=== PATIENT | female | born 1970 | race Caucasian/White ===

== ENCOUNTER 2022-05-14 13:47 | Inpatient (IN) ==
[2022-05-14 14:36] LABS: Basophils # (auto) 0.04 K/uL (0-0.2); Basophils % (auto) 0.5 %; Eosinophils % (auto) 1.2 %; Hematocrit (blood only) 41.2 % (34.1-44.9); Hemoglobin 13.5 g/dl (12.0-16.0); Immature Granulocytes # (auto) 0.01 K/uL (0.00-0.02); Immature Granulocytes % (auto) 0.1 %; Lymphocytes # (auto) 2.64 K/uL (1.2-3.4); Lymphocytes % (auto) 30.9 %; Mean Corpuscular Hemoglobin 28.9 pg (25.0-34.0); Mean Corpuscular Hgb Conc 32.8 g/dL (32.0-36.0); Mean Corpuscular Volume 88.2 fL (80.0-100.0); Mean Platelet Volume 9.3 fL (9.4-12.3); Monocytes # (auto) 0.37 K/uL (0.24-0.82); Monocytes % (auto) 4.3 %; Neutrophils # (auto) 5.38 K/uL (1.4-6.5); Platelet Count 184 K/uL (130-400); RDW Coefficient of Variation 13.4 % (11.5-14.5); Red Blood Count 4.67 M/uL (3.93-5.22); White Blood Count 8.54 K/ul (4.8-10.8)
[2022-05-14 14:49] LABS: INR 1.1 (0.9-1.1); Partial Thromboplastin Ratio 0.9; Partial Thromboplastin Time 25.5 Seconds (21.0-31.0); Prothrombin Time 12.1 Seconds (9.0-12.0)
[2022-05-14 14:58] LABS: Alanine Aminotransferase 11 U/L (7-52); Albumin Globulin Ratio 1.2 (0.9-2); Albumin Level 4.4 gm/dl (3.4-5.0); Alkaline Phosphatase 103 U/L (34-104); Anion Gap 5 (3-11); Aspartate Aminotransferase 12 U/L (13-39); BUN Creatinine Ratio 11.9 (10-20); Bilirubin,Total 0.8 mg/dl (0.2-1.0); Blood Urea Nitrogen 8 mg/dl (6-23); Calcium 9.8 mg/dl (8.5-10.1); Carbon Dioxide 29 mmol/L (21-32); Chloride 108 mmol/L (98-107); Creatinine Clr Calc Pharmacy 86.8 ml/min; Est GFR (African American) 118.8 ml/min; Est GFR (Non-African American) 102.5 ml/min; Globulin 3.7 gm/dl (2.5-4.0); Glucose 77 mg/dl (70-99(Fasting)); Potassium 3.7 mmol/L (3.5-5.1); Sodium 142 mmol/L (136-145); Total Protein 8.1 gm/dl (6.0-8.3)
[2022-05-14 15:17] LABS: D Dimer 730 ug/L FEU (0-500)
--- NOTE | 2022-05-14 15:46 | Emergency Department Note ---
History of Present Illness General Chief complaint: Cardiac Assessment Stated complaint: CHEST PAIN, ENLARGED HEART ([facility]RAY) Time Seen by Provider: 05/14/22 15:33 Source: patient, family (Boyfriend who is at the bedside), RN notes reviewed and old records reviewed (Records from [facility]) Mode of arrival: ambulatory Limitations: no limitations History of Present Illness Maximum Pain Intensity: 10 This patient is a 51-year-old female who comes in with chest pain she was actually sent over from [facility]. She has been having pain for the last 2 weeks she is felt short of breath at times. They thought she needed a CAT scan because according to the read on x-ray she had cardiomegaly and a right lower lobe infiltrate. They did COVID and flu testing was negative. They did an EKG also which they did not feel was ischemic. It starts centrally in the epigastric area goes to the left breast and back. She has had some pleurisy with it and shortness of breath no lower extremity pain or swelling is mostly when she lays down. No recent trauma she has chronic nausea which is unchanged no fever chills she has a nonproductive cough. no sick contacts. Home Medications Medication Instructions Recorded Confirmed Type atorvastatin 20 mg tablet (Lipitor) 20 mg PO PM 05/14/22 05/14/22 History cetirizine 10 mg tablet (Zyrtec) 10 mg PO DAILY 05/14/22 05/14/22 History insulin aspart U-100 100 unit/mL 1 sliding scale dose subcut 05/14/22 05/14/22 History subcutaneous solution (Novolog USEASDIRECTD PRN DEPENDS ON BSG. U-100 Insulin aspart) insulin detemir U-100 100 unit/mL 60 - 80 unit subcut HS 05/14/22 05/14/22 History subcutaneous solution (Levemir U-100 Insulin) levothyroxine 50 mcg tablet 50 mcg PO DAILY 05/14/22 05/14/22 History (Euthyrox) lisinopril 2.5 mg tablet 2.5 mg PO DAILY 05/14/22 05/14/22 History ondansetron HCl 4 mg tablet 4 mg PO Q6H PRN NAUSEA/VOMITING 05/14/22 05/14/22 History tramadol 50 mg tablet 50 mg PO Q6H PRN Pain 05/14/22 05/14/22 History zolpidem 10 mg tablet 10 mg PO HS 05/14/22 05/14/22 History Allergies Allergy/AdvReac Type Severity Reaction Status Date / Time No Known Allergies Allergy Verified 05/14/22 17:50 Past Med/Surg History Social History Smoking Status: Never smoker Preferred Language: Bulgarian Feels Safe at Home: Yes Immunizations: Past all historytype 1 diabetes. She denies any pulmonary history of blood clots. She had a MA at age 31 she tells me Social history she is from [place] and here visiting her boyfriend Review of Systems A total of 10 systems reviewed and were otherwise negative Physical Exam Vital Signs Vital Signs - 24 hr 05/14/22 13:55 05/14/22 15:36 05/14/22 15:36 Temperature 36.6 C Temperature Source Temporal Artery Scan Pulse Rate 96 H Pulse Rate [Apical] 97 H Pulse Rhythm Regular Pulse Strength Normal Respiratory Rate 20 18 Respiratory Effort / Characteristics Non-Labored Spontaneous Non-Labored Spontaneous Non-Labored Spontaneous Respiratory Depth Normal Normal Respiratory Pattern Regular Blood Pressure 144/84 H Blood Pressure [Right Arm] 119/78 Blood Pressure Mean 104 Blood Pressure Mean [Right Arm] 91 Blood Pressure Position Sitting Blood Pressure Position [Right Arm] Sitting Pulse Oximetry 98 98 98 Oxygen Delivery Method Room Air Room Air Room Air Sepsis Recent Fever Within 48 Hours No Sepsis New/Unexplained Change in Mental Status No Sepsis Action Taken by Nursing No Action Required 05/14/22 16:23 05/14/22 17:00 05/14/22 17:50 Temperature Temperature Source Pulse Rate Pulse Rate [Apical] 93 H 85 93 H Pulse Rhythm Pulse Strength Respiratory Rate 18 16 18 Respiratory Effort / Characteristics Non-Labored Spontaneous Non-Labored Spontaneous Non-Labored Spontaneous Respiratory Depth Normal Normal Normal Respiratory Pattern Blood Pressure Blood Pressure [Right Arm] 127/84 116/77 125/90 Blood Pressure Mean Blood Pressure Mean [Right Arm] 98 90 101 Blood Pressure Position Blood Pressure Position [Right Arm] Sitting Lying Lying Pulse Oximetry 99 97 93 Oxygen Delivery Method Room Air Room Air Room Air Sepsis Recent Fever Within 48 Hours Sepsis New/Unexplained Change in Mental Status Sepsis Action Taken by Nursing General: Well developed well nourished middle-aged female who is nonacute the ill-appearing and in no acute distress, breathing comfortably on room air. Normal speech HEENT: Normal cephalic atraumatic. Pupils are equal round and reactive to light. Extraocular movements are intact. Oropharynx is pink with moist mucous membranes. No swelling of the mouth lips or tongue. Neck: Supple with a midline trachea. No meningeal signs or stiffness, no JVD or bruits. No Stridor. Chest: Clear to auscultation bilaterally. No wheezes or rhonchi. No increased work of breathing. Tender palpation epigastric area and towards the left chest. Heart: Regular rate and rhythm without murmurs or gallops. Abdomen: Soft nontender, nondistended without rebound guarding or rigidity. Extremities: No cyanosis clubbing or edema. No calf tenderness or assymetry Spine/Back. Non tender to palpation. No CVA tenderness Skin: Good turgor without rashes. Neurologic exam: Cranial nerves two through 12 are intact. Motor and sensation are intact and symmetrical throughout. Critical Care Time Critical Care Time: Yes Total Critical Care Time: 35 Due to the patient's chest pain, concern for Significant pericardial effusion with developing cardiac tamponade, need for frequent reassessment and multiple consultations, I have personally spent gr eater than 35 minutes of critical care time in the direct management of this patient. This includes bedside care, interpretation of diagnostic studies, and testing, discussion with consultants, patient, and family members, and other required patient management activities. This 35 minutes is in excess of all separately billable procedures. Medical Decision Making Differential Diagnosis Acute coronary syndrome, arrhythmia, PE, pneumothorax, intra-abdominal process, GERD, electrolyte or metabolic, pericardial effusion/tamponade Medical Records Attestation: I reviewed the patient's medical records. Home Medications Current Medication List: was personally reviewed by me Laboratory Data Attestation: I reviewed the patient's lab results. Result diagrams: 05/14/22 14:25 05/14/22 14:25 Lab Results 05/14/22 05/14/22 05/14/22 Range/Units 14:25 14:25 14:25 WBC 8.54 (4.8-10.8) K/ul RBC 4.67 (3.93-5.22) M/uL Hgb 13.5 (12.0-16.0) g/dl Hct 41.2 (34.1-44.9) % MCV 88.2 (80.0-100.0) fL MCH 28.9 (25.0-34.0) pg MCHC 32.8 (32.0-36.0) g/dL RDW Std Deviation 43.0 (36.4-46.3) fL RDW Coeff of Avril 13.4 (11.5-14.5) % Plt Count 184 (130-400) K/uL MPV 9.3 L (9.4-12.3) fL Immature Gran % (Auto) 0.1 % Neut % (Auto) 63.0 % Lymph % (Auto) 30.9 % [place] % (Auto) 4.3 % Eos % (Auto) 1.2 % Baso % (Auto) 0.5 % Neut # (Auto) 5.38 (1.4-6.5) K/uL Lymph # (Auto) 2.64 (1.2-3.4) K/uL [place] # (Auto) 0.37 (0.24-0.82) K/uL Eos # (Auto) 0.10 (0-0.50) K/uL Baso # (Auto) 0.04 (0-0.2) K/uL Immature Gran # (Auto) 0.01 (0.00-0.02) K/uL ESR (0-30) mm/hr PT 12.1 H (9.0-12.0) Seconds INR 1.1 (0.9-1.1) APTT 25.5 (21.0-31.0) Seconds PTT Ratio 0.9 D-Dimer 730 H* (0-500) ug/L FEU Sodium 142 (136-145) mmol/L Potassium 3.7 (3.5-5.1) mmol/L Chloride 108 H (98-107) mmol/L Carbon Dioxide 29 (21-32) mmol/L Anion Gap 5 (3-11) BUN 8 (6-23) mg/dl Creatinine 0.67 (0.6-1.2) mg/dl Est Cr Clr Drug Dosing 86.8 ml/min Est GFR ( Amer) 118.8 ml/min Est GFR (Non-Af Amer) 102.5 ml/min BUN/Creatinine Ratio 11.9 (10-20) Glucose 77 (70-99(Fasting)) mg/dl Calcium 9.8 (8.5-10.1) mg/dl Magnesium 2.0 (1.7-2.4) mg/dl Total Bilirubin 0.8 (0.2-1.0) mg/dl AST 12 L (13-39) U/L ALT 11 (7-52) U/L Alkaline Phosphatase 103 (34-104) U/L Troponin I High Sens < 2.3 (0-14) pg/ml C-Reactive Protein (0-0.5) mg/dl B-Natriuretic Peptide (0-100) pg/ml Total Protein 8.1 (6.0-8.3) gm/dl Albumin 4.4 (3.4-5.0) gm/dl Globulin 3.7 (2.5-4.0) gm/dl Albumin/Globulin Ratio 1.2 (0.9-2) SARS-CoV-2, RNA, NAAT (NEGATIVE) 05/14/22 05/14/22 05/14/22 Range/Units 14:25 14:25 14:25 WBC (4.8-10.8) K/ul RBC (3.93-5.22) M/uL Hgb (12.0-16.0) g/dl Hct (34.1-44.9) % MCV (80.0-100.0) fL MCH (25.0-34.0) pg MCHC (32.0-36.0) g/dL RDW Std Deviation (36.4-46.3) fL RDW Coeff of Avril (11.5-14.5) % Plt Count (130-400) K/uL MPV (9.4-12.3) fL Immature Gran % (Auto) % Neut % (Auto) % Lymph % (Auto) % [place] % (Auto) % Eos % (Auto) % Baso % (Auto) % Neut # (Auto) (1.4-6.5) K/uL Lymph # (Auto) (1.2-3.4) K/uL [place] # (Auto) (0.24-0.82) K/uL Eos # (Auto) (0-0.50) K/uL Baso # (Auto) (0-0.2) K/uL Immature Gran # (Auto) (0.00-0.02) K/uL ESR 55 H (0-30) mm/hr PT (9.0-12.0) Seconds INR (0.9-1.1) APTT (21.0-31.0) Seconds PTT Ratio D-Dimer (0-500) ug/L FEU Sodium (136-145) mmol/L Potassium (3.5-5.1) mmol/L Chloride (98-107) mmol/L Carbon Dioxide (21-32) mmol/L Anion Gap (3-11) BUN (6-23) mg/dl Creatinine (0.6-1.2) mg/dl Est Cr Clr Drug Dosing ml/min Est GFR ( Amer) ml/min Est GFR (Non-Af Amer) ml/min BUN/Creatinine Ratio (10-20) Glucose (70-99(Fasting)) mg/dl Calcium (8.5-10.1) mg/dl Magnesium (1.7-2.4) mg/dl Total Bilirubin (0.2-1.0) mg/dl AST (13-39) U/L ALT (7-52) U/L Alkaline Phosphatase (34-104) U/L Troponin I High Sens (0-14) pg/ml C-Reactive Protein 1.00 H (0-0.5) mg/dl B-Natriuretic Peptide 16 (0-100) pg/ml Total Protein (6.0-8.3) gm/dl Albumin (3.4-5.0) gm/dl Globulin (2.5-4.0) gm/dl Albumin/Globulin Ratio (0.9-2) SARS-CoV-2, RNA, NAAT (NEGATIVE) 05/14/22 Range/Units 16:24 WBC (4.8-10.8) K/ul RBC (3.93-5.22) M/uL Hgb (12.0-16.0) g/dl Hct (34.1-44.9) % MCV (80.0-100.0) fL MCH (25.0-34.0) pg MCHC (32.0-36.0) g/dL RDW Std Deviation (36.4-46.3) fL RDW Coeff of Avril (11.5-14.5) % Plt Count (130-400) K/uL MPV (9.4-12.3) fL Immature Gran % (Auto) % Neut % (Auto) % Lymph % (Auto) % [place] % (Auto) % Eos % (Auto) % Baso % (Auto) % Neut # (Auto) (1.4-6.5) K/uL Lymph # (Auto) (1.2-3.4) K/uL [place] # (Auto) (0.24-0.82) K/uL Eos # (Auto) (0-0.50) K/uL Baso # (Auto) (0-0.2) K/uL Immature Gran # (Auto) (0.00-0.02) K/uL ESR (0-30) mm/hr PT (9.0-12.0) Seconds INR (0.9-1.1) APTT (21.0-31.0) Seconds PTT Ratio D-Dimer (0-500) ug/L FEU Sodium (136-145) mmol/L Potassium (3.5-5.1) mmol/L Chloride (98-107) mmol/L Carbon Dioxide (21-32) mmol/L Anion Gap (3-11) BUN (6-23) mg/dl Creatinine (0.6-1.2) mg/dl Est Cr Clr Drug Dosing ml/min Est GFR ( Amer) ml/min Est GFR (Non-Af Amer) ml/min BUN/Creatinine Ratio (10-20) Glucose (70-99(Fasting)) mg/dl Calcium (8.5-10.1) mg/dl Magnesium (1.7-2.4) mg/dl Total Bilirubin (0.2-1.0) mg/dl AST (13-39) U/L ALT (7-52) U/L Alkaline Phosphatase (34-104) U/L Troponin I High Sens (0-14) pg/ml C-Reactive Protein (0-0.5) mg/dl B-Natriuretic Peptide (0-100) pg/ml Total Protein (6.0-8.3) gm/dl Albumin (3.4-5.0) gm/dl Globulin (2.5-4.0) gm/dl Albumin/Globulin Ratio (0.9-2) SARS-CoV-2, RNA, NAAT NEGATIVE (NEGATIVE) Imaging Data Attestation: I personally reviewed and interpreted this imaging study as follows: My Impression: Chest x-ray-there is significant cardiomegaly and the shape of the heart is globular concerning for pericardial effusion. No focal infiltrates Radiologist's Impression: Chest X-Ray 05/14/22 14:03 XR chest 1V portable CLINICAL HISTORY: SOB TECHNIQUE: Single frontal radiograph of the chest was obtained. Comparison: None available at the time of this dictation. FINDINGS: No lines and tubes are seen. Cardiomegaly is noted. Linear density in the left retrocardiac region may represent atelectasis. No evidence of pleural effusion or pneumothorax. IMPRESSION: Cardiomegaly. Likely atelectasis in the left lung. ACT 112: Negative or not required by law. Electronically signed by: Joe Whitfield M.D. 05/14/2022 3:56 PM Chest CTA 05/14/22 16:02 CT angio chest PE protocol CLINICAL HISTORY: Left-sided chest pain and cough. Shortness of breath. COMPARISON STUDY: Portable chest from 05/14/2022 CT DOSE: 221.28 mGy.cm TECHNIQUE: CT Angio of the chest was performed.followed by image post processing with coronal, and sagittal MIP reformats. Contrast Volume: Optiray 320, 120 ml FINDINGS: Vasculature: There is homogeneous perfusion of the pulmonary vasculature bilaterally. No intraluminal filling defects or evidence for pulmonary embolus is seen. Airway: The airway is clear. No endobronchial lesion is identified. Lungs and pleural: There is elevation of the left hemidiaphragm with left basilar atelectasis. The lungs are otherwise clear of acute alveolar opacities, air bronchograms or pulmonary nodules. Mediastinum: There is no evidence for pathologic adenopathy. The overall heart size is markedly enlarged due to a markedly large pericardial effusion. The underlying cardiac parenchyma is of normal size. The thoracic aorta is within normal limits. Upper abdomen: The adrenal glands are normal bilaterally. Osseous structures: There is no acute osseous pathology. Impression: 1. No CTA evidence for pulmonary embolus. 2. Markedly large pericardial effusion producing marked cardiomegaly. 2. Small left pleural effusion and left basilar atelectasis. ACT 112: Negative or not required by law. Electronically signed by: Garrick Vuong M.D. 05/14/2022 5:26 PM ECG Data Attestation: I personally reviewed and interpreted this ECG as follows: Indication: + chest pain Rate (beats per minute): 88 Rhythm: + normal sinus ECG Intervals/blocks: + Normal QRS, + Short KS and + Normal QT ECG Kamiah: + Normal ECG ST segments: + Normal ST segments ECG Findings: no PACs or no PVCs Comparison ECG Date: from (Earlier today at [facility]) Change: no significant change MDM Narrative This patient comes in as described above. She was placed in room C1 on a due diligence coordinator she was sent over from [facility]. Labs were started in triage her EKG does not suggest acute coronary syndrome or arrhythmia. I did not do a chest x-ray as she just had 1 and she is going to get a CT. She has no fever or white count to suggest infection she has no severe electrolyte or metabolic abnormalities. Her D-dimer was mildly elevated in light of this I did do a CTA as well. In the meantime her chest x-ray came back as a very globular large heart I was concerned about pericardial effusion vertically based on her symptoms and looking at her EKG she seems low voltage. Her pressures been good and but her symptoms are also positional. I did consult Dr. Clark who ordered an echo and the automotive specialty technician promptly came to the ED. The Dr. Clark also came and she does have a large pericardial effusion both seen on echo and CT. Dr. Cabrera from the [facility] also came down and called a heart alert and he is going to take her to the Environmental [facility] And Safety Manager for pericardial drainage. The patient will likely need to go to the ICU afterwards and I discussed the case with Dr. Toth from the ICU to make him aware as well. I further discussed the case with RJ Pedro the hospitalist service and she is going to admit the patient. She was cardiac monitoring: Orders placed in EMR for continuous cardiac monitoring. Collins interpretation patient was noted to be in normal sinus rhythm with a rate of 85. Impression & Plan Cardiac tamponade, Acute pericardial effusion, Chest pain, Shortness of breath, Lab test negative for COVID-19 virus, Type 1 diabetes mellitus Discharge Plan Visit Data Chief Complaint: Cardiac Assessment Stated Complaint: CHEST PAIN, ENLARGED HEART ([facility]) ED Provider: Fausto More Discharge Problem: Cardiac tamponade, Acute pericardial effusion, Chest pain, Shortness of breath, Lab test negative for COVID-19 virus, Type 1 diabetes mellitus Forms Stand Alone Forms: My [facility] Prescriptions Prescriptions: No Action atorvastatin [Lipitor] 20 mg Tablet 20 mg PO PM cetirizine [Zyrtec] 10 mg Tablet 10 mg PO DAILY ondansetron HCl [Zofran] 4 mg Tablet 4 mg PO Q6H PRN (Reason: NAUSEA/VOMITING) tramadol 50 mg tablet 50 mg PO Q6H PRN (Reason: Pain) insulin aspart U-100 [Novolog U-100 Insulin aspart] 100 unit/mL Solution 1 sliding scale dose SUBCUT USEASDIRECTD PRN (Reason: DEPENDS ON BSG.) Rx Instructions: PER SPOUSE "HAS BEEN TAKING 3 UNITS DAILY LATELY". levothyroxine [Euthyrox] 50 mcg tablet 50 mcg PO DAILY zolpidem 10 mg tablet 10 mg PO HS lisinopril 2.5 mg tablet 2.5 mg PO DAILY Levemir U-100 Insulin 100 unit/mL Solution 60 - 80 unit SUBCUT HS Rx Instructions: PER SPOUSE "NEVER ABOVE 80 UNITS". Referrals Referrals: PCP,NO [Primary Care Provider] -
--- NOTE | 2022-05-14 15:57 | XRay Report ---
XR chest 1V portable CLINICAL HISTORY: SOB TECHNIQUE: Single frontal radiograph of the chest was obtained. Comparison: None available at the time of this dictation. FINDINGS: No lines and tubes are seen. Cardiomegaly is noted. Linear density in the left retrocardiac region ma y represent atelectasis. No evidence of pleural effusion or pneumothorax. IMPRESSION: Cardiomegaly. Likely atelectasis in the left lung. ACT 112: Negative or not required by law. Electronically signed by: Joe Whitfield M.D. 05/14/2022 3:56 PM
[2022-05-14 16:28] LABS: Troponin I High Sensitivity < 2.3 pg/ml (0-14)
--- NOTE | 2022-05-14 17:28 | CT Scan Report ---
CT angio chest PE protocol CLINICAL HISTORY: Left-sided chest pain and cough. Shortness of breath. COMPARISON STUDY: Portable chest from 05/14/2022 CT DOSE: 221.28 mGy.cm TECHNIQUE: CT Angio of the chest was performed.followed by image post processing with coronal, and s agittal MIP reformats. Contrast Volume: Optiray 320, 120 ml FINDINGS: Vasculature: There is homogeneous perfusion of the pulmonary vasculature bilaterally. No intraluminal filling defects or evidence for pulmonary embolus is seen. Airway: The airway is clear. No endobronchial lesion is identified. Lungs and pleural: There is elevation of the left hemidiaphragm with left basilar atelectasis. The cathy ngs are otherwise clear of acute alveolar opacities, air bronchograms or pulmonary nodules. Mediastinum: There is no evidence for pathologic adenopathy. The overall heart size is markedly enlar ged due to a markedly large pericardial effusion. The underlying cardiac parenchyma is of normal size . The thoracic aorta is within normal limits. Upper abdomen: The adrenal glands are normal bilaterally. Osseous structures: There is no acute osseous pathology. Impression: 1. No CTA evidence for pulmonary embolus. 2. Markedly large pericardial effusion producing marked cardiomegaly. 2. Small left pleural effusion and left basilar atelectasis. ACT 112: Negative or not required by law. Electronically signed by: Garrick Vuong M.D. 05/14/2022 5:26 PM
--- NOTE | 2022-05-14 18:04 | Cardiology Consultation ---
Date of Consultation May 14, 2022 Assessment & Plan (1) Acute pericardial effusion: (2) Cardiac tamponade: Patient with findings of symptomatic large circumferential pericardial effusion, tamponade physiology noted on echocardiogram as the right ventricle small and underfilled. Etiology to be determined. Case discussed with Dr. Cabrera of interventional cardiology, with whom I saw the patient at the bedside. Recommend proceeding with percutaneous pericardiocentesis. Will be sent for the standard studies. Start colchicine this evening. [facility]. Case discussed with Dr. Cabrera, Dr More, and Tori Willis PA-C. History of Present Illness History of Present Illness Bell Oliva is a 51-year-old female seen in cardiology consultation per the request of Dr. More for the evaluation of chest discomfort, shortness of breath, findings of large circumferential pericardial effusion. The patient typically resides in [place]. She has been in [place] since April 06, as her is here working locally. For the last 2 weeks she describes a progressive pain in the chest as well as worsening shortness of breath. She notes her chest discomfort is worse if she tries to take a deep breath and if she tries to lie supine. She prefers to sit straight up. She presented to a local urgent care today and was referred to the emergency department. Initial testing included an EKG that revealed sinus rhythm with low voltage, and a chest x-ray revealing a large globular cardiac silhouette. CT angiogram revealed a markedly large pericardial effusion and small left pleural effusion. Bedside echocardiogram has revealed a very large circumferential pericardial effusion with tamponade physiology findings of right ventricular diastolic collapse. Patient is hemodynamically stable with systolic blood pressure in the range of 119 to 125 mmHg, pulse oximetry has been in the range of 93 to 99% on room air. She is afebrile, and notes no current or recent viral symptoms. She notes that she feels she is up-to-date with her routine cancer screenings. Her most recent mammogram had been in July,. She denies ever having had a colonoscopy however. Past Medical History: Type 2 diabetes mellitus Dyslipidemia Past TIAs DKA event 7 years ago Family History: Father with history of CAD, stents Mother with history of colon and breast carcinoma Social History: She lives with her , resides in [place] most of the time. Allergies Allergy/AdvReac Type Severity Reaction Status Date / Time No Known Allergies Allergy Verified 05/14/22 17:50 Home Medications Medication Instructions Recorded Confirmed Type atorvastatin 20 mg tablet (Lipitor) 20 mg PO PM 05/14/22 05/14/22 History cetirizine 10 mg tablet (Zyrtec) 10 mg PO DAILY 05/14/22 05/14/22 History insulin aspart U-100 100 unit/mL 1 sliding scale dose subcut 05/14/22 05/14/22 History subcutaneous solution (Novolog USEASDIRECTD PRN DEPENDS ON BSG. U-100 Insulin aspart) insulin detemir U-100 100 unit/mL 60 - 80 unit subcut HS 05/14/22 05/14/22 Hist ory subcutaneous solution (Levemir U-100 Insulin) levothyroxine 50 mcg tablet 50 mcg PO DAILY 05/14/22 05/14/22 History (Euthyrox) lisinopril 2.5 mg tablet 2.5 mg PO DAILY 05/14/22 05/14/22 History ondansetron HCl 4 mg tablet 4 mg PO Q6H PRN NAUSEA/VOMITING 05/14/22 05/14/22 History tramadol 50 mg tablet 50 mg PO Q6H PRN Pain 05/14/22 05/14/22 History zolpidem 10 mg tablet 10 mg PO HS 05/14/22 05/14/22 History Patient History Social History Smoking Status: Never smoker Preferred Language: Czech Feels Safe at Home: Yes Review of Systems Review of Systems: All systems reviewed & are unremarkable except as noted in HPI & below Physical Exam Physical Exam: Temp Pulse Resp BP Pulse Ox O2 Del Method 36.6 C 93 H 18 125/90 93 05/14/22 13:55 05/14/22 17:50 05/14/22 17:50 05/14/22 17:50 05/14/22 17:50 05/14/22 17:50 Constitutional: + ill appearing Eyes: PERRL, conjunctivae normal, anicteric sclerae Respiratory: + labored breathing Auscultation: + diminished lung sounds (Decreased breath sounds in the bases) Cardiovascular: Rate/Rhythm: regular rate and regular rhythm (Decreased volume of heart sounds) Extremities: no edema Gastrointestinal (Abdomen): normal bowel sounds, soft, nontender, no hepatosplenomegaly Skin: no rashes, warm and dry Neurologic: PERRL, EOMI, accommodation nl, no face palsy, no dysarthria Results & Data ([facility]) Vital Signs (Past 12 Hours) Vital Signs Temp Pulse Pulse Resp BP BP Pulse Ox 05/14/22 17:50 93 H 18 125/90 93 05/14/22 17:00 85 16 116/77 97 05/14/22 16:23 93 H 18 127/84 99 05/14/22 15:36 98 05/14/22 15:36 97 H 18 119/78 98 05/14/22 13:55 36.6 C 96 H 20 144/84 H 98 O2 Del Method 05/14/22 17:50 Room Air 05/14/22 17:00 Room Air 05/14/22 16:23 Room Air 05/14/22 15:36 Room Air 05/14/22 15:36 Room Air 05/14/22 13:55 Room Air Laboratory Results Cardiac Enzymes 05/14/22 05/14/22 Range/Units 14:25 14:25 AST 12 L (13-39) U/L Troponin I High Sens < 2.3 (0-14) pg/ml B-Natriuretic Peptide 16 (0-100) pg/ml erythrocyte sedimentation rate 55 mm/h C-reactive protein 1 mg/dL Coagulation 05/14/22 05/14/22 Range/Units 14:25 14:25 PT 12.1 H (9.0-12.0) Seconds APTT 25.5 (21.0-31.0) Seconds B-Natriuretic Peptide 16 (0-100) pg/ml CBC 05/14/22 Range/Units 14:25 WBC 8.54 (4.8-10.8) K/ul RBC 4.67 (3.93-5.22) M/uL Hgb 13.5 (12.0-16.0) g/dl Hct 41.2 (34.1-44.9) % Plt Count 184 (130-400) K/uL Neut # (Auto) 5.38 (1.4-6.5) K/uL Lymph # (Auto) 2.64 (1.2-3.4) K/uL [place] # (Auto) 0.37 (0.24-0.82) K/uL Eos # (Auto) 0.10 (0-0.50) K/uL Baso # (Auto) 0.04 (0-0.2) K/uL Comprehensive Metabolic Panel 05/14/22 Range/Units 14:25 Sodium 142 (136-145) mmol/L Potassium 3.7 (3.5-5.1) mmol/L Chloride 108 H (98-107) mmol/L Carbon Dioxide 29 (21-32) mmol/L BUN 8 (6-23) mg/dl Creatinine 0.67 (0.6-1.2) mg/dl Glucose 77 (70-99(Fasting)) mg/dl Calcium 9.8 (8.5-10.1) mg/dl AST 12 L (13-39) U/L ALT 11 (7-52) U/L Alkaline Phosphatase 103 (34-104) U/L Total Protein 8.1 (6.0-8.3) gm/dl Albumin 4.4 (3.4-5.0) gm/dl Diagnostic Findings EKG: Sinus rhythm at 80 bpm low voltage, nonspecific diffuse T wave flattening
[2022-05-14] MEDS ORDERED: MIDAZOLAM HCL 1 MG/ML 2ML VIAL ONE (18:06)
[2022-05-14] MEDS ORDERED: fentaNYL citrate 100 MCG/2 ML VIAL ONE (18:06)
--- NOTE | 2022-05-14 18:18 | Pre Anesthesia Assessment ---
Date of Service May 14, 2022 Pre Sedation Assessment Vital Signs Temp Pulse Pulse Resp BP BP Pulse Ox 05/14/22 17:50 93 H 18 125/90 93 05/14/22 17:00 85 16 116/77 97 05/14/22 16:23 93 H 18 127/84 99 05/14/22 15:36 98 05/14/22 15:36 97 H 18 119/78 98 05/14/22 13:55 97.9 F 96 H 20 144/84 H 98 O2 Del Method 05/14/22 17:50 Room Air 05/14/22 17:00 Room Air 05/14/22 16:23 Room Air 05/14/22 15:36 Room Air 05/14/22 15:36 Room Air 05/14/22 13:55 Room Air Cardiovascular RRR, no murmur, no edema Respiratory normal respiratory effort, lungs clear to auscultation Pre-Sedation Airway Assessment Smoking Status: Never smoker Hx Sleep Apnea: No Hx Difficult Intubation: No Short, Thick Neck: No Thyromental Distance: > or= 3.5 Finger Breadths Oral Cavity: + WNL Mallampati Class: III ASA: ASA3 Procedure Planning Contraindications for Sedation: none Current Medications Reviewed: Yes Notes The planned sedation has been discussed with the patient. Informed Consent was obtained. I have identified the patient, determined the appropriateness of sedation and have assessed the patient immediately prior to the procedure. All medicine(s) and interventions are by my order.
--- NOTE | 2022-05-14 18:50 | History & Physical Report ---
Date of Service May 14, 2022 Assessment & Plan (1) Acute pericardial effusion: (2) Cardiac tamponade: (3) T2DM (type 2 diabetes mellitus): (4) HLD (hyperlipidemia): Plan This is a 51-year-old female who has a significant past medical history of T2DM, history of TIAs, history of DKA, gastroparesis who presents to ED after complaining of chest pain off and on for 2 weeks. Acute pericardial effusion Cardiac tamponade Status post emergent pericardiocentesis by Dr. Cabrera, POD #0 Removed 1 L of straw-colored fluid Cytology, cultures and cell counts ordered by Dr. Patten CRP 1, ESR 55 Repeat echo Cardiology on board Colchicine started this evening 0.6 mg twice daily Will hold any NSAIDs/ibuprofen this evening until follow-up creatinine in the morning per cardioloy Patient to be admitted to ICU Further care as per milling supervisor consultation T2DM Per patient last A1c was 6.7 Lantus/NovoLog per protocol Will consult glycemic pharmacy continue lisinopril for renal protection Hyperlipidemia Continue statin Hypothyroidism Continue levothyroxine DVT prophylaxis SCDs Dispo: Admitted to ICU Full code PCP: Patient resides in [place], has been in area since April 06 while significant other is working Patient was seen and examined in collaboration with, Dr. Sung, please see addendum History of Present Illness Chief Complaint: Chest pain x 2 weeks. Primary Care Provider: NO PCP This is a 51-year-old female who has a significant past medical history of T2DM, history of TIAs, history of DKA, gastroparesis who presents to ED after complaining of chest pain off and on for 2 weeks. Of significance patient resides in [place]. 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 Over the last 2 weeks she describes a progressive substernal chest pain that has been worsening over the last 2 weeks. Her pain is worsened with lying flat and feels better if she sits up or leans forward. She does complain of shortness with exertion as well as difficulty taking a deep breath. She denies any recent fever, chills, sweats, lightheadedness, dizziness, syncope, cough, hemoptysis, nausea, vomiting, abdominal pain, change in bowel or urinary habits. She does have off-and-on nausea due to gastroparesis for which she takes Zofran. She also has history of insulin-dependent T2DM. She takes approximately 60 to 80 units of Levemir once daily. She states her last A1c was 6.7. Patient significant other was at bedside. She initially presented to urgent care and was referred over to ED due to concern for possible pericardial effusion. In ED work-up revealed chest x- ray with a large globular cardiac silhouette. CT angiogram revealed a markedly large pericardial effusion and small left pleural effusion. Bedside echo reveal ed a large circumferential pericardial effusion with tamponade physiology with findings of right ventricular diastolic collapse. A heart alert was called and patient was evaluated by licensed insurance sales agent as well as [facility] small business director to be taken to [facility] for pericardiocentesis. Allergies Allergy/AdvReac Type Severity Reaction Status Date / Time No Known Allergies Allergy Verified 05/14/22 17:50 Home Medications Medication Instructions Recorded Confirmed Type atorvastatin 20 mg tablet (Lipitor) 20 mg PO PM 05/14/22 05/14/22 History cetirizine 10 mg tablet (Zyrtec) 10 mg PO DAILY 05/14/22 05/14/22 History insulin aspart U-100 100 unit/mL 1 sliding scale dose subcut 05/14/22 05/14/22 History subcutaneous solution (Novolog USEASDIRECTD PRN DEPENDS ON BSG. U-100 Insulin aspart) insulin detemir U-100 100 unit/mL 60 - 80 unit subcut HS 05/14/22 05/14/22 History subcutaneous solution (Levemir U-100 Insulin) levothyroxine 50 mcg tablet 50 mcg PO DAILY 05/14/22 05/14/22 History (Euthyrox) lisinopril 2.5 mg tablet 2.5 mg PO DAILY 05/14/22 05/14/22 History ondansetron HCl 4 mg tablet 4 mg PO Q6H PRN NAUSEA/VOMITING 05/14/22 05/14/22 History tramadol 50 mg tablet 50 mg PO Q6H PRN Pain 05/14/22 05/14/22 History zolpidem 10 mg tablet 10 mg PO HS 05/14/22 05/14/22 History Past Med/Surg History Medical History (Updated 05/15/22 @ 08:19 by Shawn Toth MD) DKA (diabetic ketoacidosis) Gastroparesis HLD (hyperlipidemia) T2DM (type 2 diabetes mellitus) TIA (transient ischemic attack) Surgical History (Updated 05/14/22 @ 19:29 by Tori Willis PA-C) Hx laparoscopic cholecystectomy Hx of abdominoplasty "tummy tuck" Hx of hysterectomy Family History (Updated 05/14/22 @ 19:29 by Tori Willis PA-C) Father Coronary heart disease Mother Colorectal cancer Breast cancer Social History (Updated 05/14/22 @ 19:29 by Tori Willis PA-C) Smoking Status: Never smoker Hx Alcohol Use: Yes Alcohol type: beer and wine Alcohol Intake Frequency: 2-4 x/Month Hx Substance Use: No Preferred Language: Beninese Communication Ability: Effective Hospice Case Manager Required: No Beliefs That Will Affect Care: None marital status: Single Current Living Situation: Significant Other Current Living Situation Comment: lives with spouse and resides in [place] most of the time Feels Safe at Home: Yes Review of Systems Review of Systems: All systems reviewed & are unremarkable except as noted in HPI & below Physical Exam Physical Exam: Constitutional: WD/WN, vitals as above, anxious and ill appearing, sitting up in bed, answers questions approp Head: Normocephalic, Atraumatic Eyes: PERRL, conjunctivae normal, anicteric sclerae ENMT: external ear and nose normal, oropharynx normal Neck: trachea midline, no thyromegaly normal visual inspection Respiratory: increased respiratory effort, lungs clear to auscultation with decreased BS at bases, no wheeze, rales, rhonchi. Normal insp/exp effort, no accessory muscle use Cardiovascular: RRR, distant heart sounds, no murmur, no edema Vessels: no JVD or carotid bruit Chest: normal inspection of chest Abdomen: normal bowel sounds, soft, nontender, no hepatosplenomegaly Musculoskeletal: no cyanosis or clubbing, extremities motor strength 5/5 Skin: no rashes, warm and dry normal turgor Neurologic: PERRL, EOMI, accommodation nl, no face palsy, no dysarthria CN's II-XI intact bilaterally and moves all extremities Psychiatric: A+Ox3, euthymic affect Lymphatic: no cervical or axillary lymphadenopathy : deferred Results & Data Results & Data ([facility]) Vital Signs (Past 12 Hours) Vital Signs Temp Pulse Pulse Resp BP BP Pulse Ox 08/11/22 17:50 93 H 18 125/90 93 05/14/22 17:00 85 16 116/77 97 05/14/22 16:23 93 H 18 127/84 99 05/14/22 15:36 98 05/14/22 15:36 97 H 18 119/78 98 05/14/22 13:55 36.6 C 96 H 20 144/84 H 98 O2 Del Method 05/14/22 17:50 Room Air 05/14/22 17:00 Room Air 05/14/22 16:23 Room Air 05/14/22 15:36 Room Air 05/14/22 15:36 Room Air 05/14/22 13:55 Room Air Diagnostic Findings Chest X-Ray 05/14/22 14:03 XR chest 1V portable CLINICAL HISTORY: SOB TECHNIQUE: Single frontal radiograph of the chest was obtained. Comparison: None available at the time of this dictation. FINDINGS: No lines and tubes are seen. Cardiomegaly is noted. Linear density in the left retrocardiac region may represent atelectasis. No evidence of pleural effusion or pneumothorax. IMPRESSION: Cardiomegaly. Likely atelectasis in the left lung. ACT 112: Negative or not required by law. Electronically signed by: Joe Whitfield M.D. 05/14/2022 3:56 PM Chest CTA 05/14/22 16:02 CT angio chest PE protocol CLINICAL HISTORY: Left-sided chest pain and cough. Shortness of breath. COMPARISON STUDY: Portable chest from 05/14/2022 CT DOSE: 221.28 mGy.cm TECHNIQUE: CT Angio of the chest was performed.followed by image post processing with coronal, and sagittal MIP reformats. Contrast Volume: Optiray 320, 120 ml FINDINGS: Vasculature: There is homogeneous perfusion of the pulmonary vasculature bilaterally. No intraluminal filling defects or evidence for pulmonary embolus is seen. Airway: The airway is clear. No endobronchial lesion is identified. Lungs and pleural: There is elevation of the left hemidiaphragm with left basilar atelectasis. The lungs are otherwise clear of acute alveolar opacities, air bronchograms or pulmonary nodules. Mediastinum: There is no evidence for pathologic adenopathy. The overall heart size is markedly enlarged due to a markedly large pericardial effusion. The underlying cardiac parenchyma is of normal size. The thoracic aorta is within normal limits. Upper abdomen: The adrenal glands are normal bilaterally. Osseous structures: There is no acute osseous pathology. Impression: 1. No CTA evidence for pulmonary embolus. 2. Markedly large pericardial effusion producing marked cardiomegaly. 2. Small left pleural effusion and left basilar atelectasis. ACT 112: Negative or not required by law. Electronically signed by: Garrick Vuong M.D. 05/14/2022 5:26 PM Summary of Findings PERICARDIOCENTESIS Indication: Large pericardial effusion, early tamponade Procedure: Moderate sedation Local anesthesia with lidocaine Echocardiographic guidance Pericardial space accessed from midline/axillary approach Short 6 Fr slender sheath placed the pericardial space Pericardial position confirmed with bubble study 6 Fr pigtail placed into pericardial space 1000 mL of straw-colored fluid removed Post procedure echo showed no significant residual pericardial fluid Pigtail/sheath removed Opening pericardial pressure: 13 Closing pericardial pressure: 1 Summary: 1. Successful pericardiocentesis with removal of 1000 mL of straw-colored fluid Recommendations: Repeat echo per Dr. Patten Follow-up cell counts, cultures, cytology Medications Administered Medication List Discontinued Medications Fentanyl Citrate (Fentanyl Citrate 100 Mcg/2 Ml Vial) Confirm Administered Dose 100 mcg .ROUTE .STK-MED ONE Stop: 05/14/22 18:07 Last Increment: 05/14/22 19:02 Dose: 25 mcg Documented By: TLF Midazolam HCl (Midazolam Hcl 1 Mg/Ml 2ml Vial) Confirm Administered Dose 2 mg .ROUTE .STK-MED ONE Stop: 05/14/22 18:07 Last Increment: 05/14/22 19:03 Dose: 1 mg Documented By: TLF ECG Rate (beats per minute): 80 Rhythm: normal sinus Additional Comments: nonspecific t wave flattening COVID-19 Results Results COVID-19 Adm Lab Results: RBC 4.59 M/uL (3.93-5.22) 05/15/22 WBC 10.64 K/ul (4.8-10.8) 05/15/22 Hgb 13.2 g/dl (12.0-16.0) 05/15/22 Hct 40.0 % (34.1-44.9) 05/15/22 Plt Count 174 K/uL (130-400) 05/15/22 Neutrophils (%) (Auto) 69.1 % 05/15/22 Lymphocytes (%) (Auto) 24.5 % 05/15/22 Monocytes # (Auto) 0.51 K/uL (0.24-0.82) 05/15/22 Eosinophils # (Auto) 0.08 K/uL (0-0.50) 05/15/22 Immature Granulocyte % (Auto) 0.4 % 05/15/22 Neutrophils # (Auto) 7.36 K/uL (1.4-6.5) H 05/15/22 Lymphocytes # (Auto) 2.61 K/uL (1.2-3.4) 05/15/22 Monocytes # (Auto) 0.51 K/uL (0.24-0.82) 05/15/22 Eosinophils # (Auto) 0.08 K/uL (0-0.50) 05/15/22 Basophils # (Auto) 0.04 K/uL (0-0.2) 05/15/22 Immature Granulocyte # (Auto) 0.04 K/uL (0.00-0.02) H 05/15 Na 138 mmol/L (136-145) 05/15/22 K 3.8 mmol/L (3.5-5.1) 05/15/22 Cl 106 mmol/L (98-107) 05/15/22 CO2 25 mmol/L (21-32) 05/15/22 Anion Gap 7 (3-11) 05/15/22 BUN 11 mg/dl (6-23) 05/15/22 Creatinine 0.68 mg/dl (0.6-1.2) 05/15/22 BUN/Creatinine Ratio 16.2 (10-20) 05/15/22 Glucose Level 227 mg/dl (70-99(Fasting)) H 05/15/22 Ca 8.7 mg/dl (8.5-10.1) 05/15/22 Total Bilirubin 0.7 mg/dl (0.2-1.0) 05/15/22 Direct Bilirubin 0.1 mg/dl (0-0.2) 05/15/22 AST/SGOT 12 U/L (13-39) L 05/15/22 ALT/SGPT 11 U/L (7-52) 05/15/22 Alkaline Phosphatase 96 U/L (34-104) 05/15/22 Total Protein 6.8 gm/dl (6.0-8.3) 05/15/22 Albumin 3.6 gm/dl (3.4-5.0) 05/15/22 Globulin 3.7 gm/dl (2.5-4.0) 05/14/22 Albumin/Globulin Ratio 1.2 (0.9-2) 05/14/22 CRP 1.47 mg/dl (0-0.5) H 05/15/22 D-Dimer 730 ug/L FEU (0-500) H* 05/14/22 PTT 25.5 Seconds (21.0-31.0) 05/14/22 INR 1.1 (0.9-1.1) 05/14/22 Triglycerides Level 82 mg/dl (0-150) 05/15/22 SARS-CoV-2, RNA, NAAT NEGATIVE (NEGATIVE) 05/14/22 Chest X-Ray 05/15/22 Code Status & VTE Plan Code Status FULL CODE VTE Prophylaxis Plan VTE Prophylaxis will be ordered: Yes Supervising Physician Co-Signing Physician Notes Attending Addendum: care coordinated with TEODORA Willis please refer to her notes for full details, I agree with her notes patient seen and examined, records reviewed by myself as well on exam, patient seen sitting up in bed, comfortable, not in distress mild chest discomfort but no dyspnea, palpitations, dizziness no other symptoms VS noted and reviewed oriented x3, not in distress, speaks in sentences with no effort nor accessory muscle use normal rate, regular rhythm, no murmurs clear breath sounds bilaterally non distended, soft, nontender no bipedal edema, erythema, warmth no neuro deficits ASSESSMENT AND PLAN PERICARDIAL EFFUSION for emergent pericardiocentesis by Dr. Cabrera then ICU admission 1 L fluid obtained Colchicine started Receptionist Doctor'S Office on board other diagnoses and plan of care as per TEODORA Willis's notes Leonardo Sung MD
--- NOTE | 2022-05-14 19:04 | Post Anesthesia Assessment ---
Date of Service May 14, 2022 Post Sedation Assessment Vital Signs Temp Pulse Pulse Resp BP BP Pulse Ox 05/14/22 17:50 93 H 18 125/90 93 05/14/22 17:00 85 16 116/77 97 05/14/22 16:23 93 H 18 127/84 99 05/14/22 15:36 98 05/14/22 15:36 97 H 18 119/78 98 05/14/22 13:55 97.9 F 96 H 20 144/84 H 98 O2 Del Method 05/14/22 17:50 Room Air 05/14/22 17:00 Room Air 05/14/22 16:23 Room Air 05/14/22 15:36 Room Air 05/14/22 15:36 Room Air 05/14/22 13:55 Room Air Recovery Score Activity: Moves 4 extremities Respiration: Deep Breath/Cough Circulation: +/-20% PreAnes Value Consciousness: Fully Awake Oxygen Saturation: O2 needed for >90% Discharge Sedation Level of Care: Fast Track Phase II Post Sedation Plan On clinical assessment, the patient appears to have tolerated the sedation without complications. Patient is recovering as anticipated. Patient will continue to be monitored by nursing and may be discharged when sedation discharge criteria are met per below protocol. Upon Completions of procedure up to 15 minutes continue every 5 minute vital signs and the P.A.R. score; then discharge to a Phase I or Fast Track to Phase II per the following guidelines: * Discharge Patient to appropriate Phase II area if PAR is 8 or greater or return to pre- procedure baseline. The post - procedure orders will be as directed. * If PAR score is less than 8 or not return to pre-procedure baseline then patient will follow Phase I monitoring till PAR is reached for Phase II. The Phase I may be done in procedure room or may call to secure a Phase I area. * If naloxone or flumazenil are used for reversal, hold in Phase I for continued monitoring from when last reversal dose was given for a minimum of 60 minutes or longer pending the nurse and/or physician discretion of patient condition before discharge to Phase II. Please call the Sedation Physician to re-evaluate and complete post-note for discharge to Phase II area. Do NOT discharge from procedure sedation or Phase 1 until post- sedation evaluation note is complete by procedure /sedation MD Sedation Discharge Instructions to be given to the patient at discharge to home.
--- NOTE | 2022-05-14 19:16 | Cardiac Catheterization ---
[facility] Data: Home Health Cna Cardiac Status Clinical evaluation leading to the procedure CAD Presenation: Sx unlikely to be ischemic Diagnostic Physicians Name: Johnny Cabrera MD Closure Device Recommendations: Management Recommendatons Cardiac Cath Procedure Full Procedure Date May 14, 2022 Pre-Procedure Diagnosis Pre-Procedure Diagnosis: Pericardial Disease AUC Score AUC Score: 7 Post-Procedure Diagnosis Post-Procedure Diagnosis: Cardiothoracic Finding (Pericardial effusion) Procedure(s) Performed Procedure(s) Performed: Pericardiocentesis Performance Test Architect Johnny Cabrera MD Whizzer Operator(s) Dayo Estimated Blood Loss Estimated Blood Loss: None Medication(s) Medication(s): Fentanyl, Lidocaine 1% and Versed Summary of Findings PERICARDIOCENTESIS Indication: Large pericardial effusion, early tamponade Procedure: Moderate sedation Local anesthesia with lidocaine Echocardiographic guidance Pericardial space accessed from midline/axillary approach Short 6 Fr slender sheath placed the pericardial space Pericardial position confirmed with bubble study 6 Fr pigtail placed into pericardial space 1000 mL of straw-colored fluid removed Post procedure echo showed no significant residual pericardial fluid Pigtail/sheath removed Opening pericardial pressure: 13 Closing pericardial pressure: 1 Summary: 1. Successful pericardiocentesis with removal of 1000 mL of straw-colored fluid Recommendations: Repeat echo per Dr. Patten Follow-up cell counts, cultures, cytology Hemodynamics Rest Ao:: -- Final Ao: -- LV: -- Recommendations Recommendations: Management Recommendatons Specimens Specimens: None Radiation Exposure (mGy) 0.5 Contrast (mls) - Anesthesia Moderate [id number] Procedural Complication(s) None Disposition ICU I attest to the content of the Intraoperative Record and any orders documented therein. Any exceptions are noted below. [employer] Card Cath Procedure Codes Therapeutic Services & Ancillary Proc Procedure 1: Cardiovascular Tx and Anc Procedures: 24136 Pericardiocentesis; initial Moderate Sedation Procedure 1: Sedation/Anesthesia: 09223 Mod Sedation by the same physician;Init15 Min Child Age 5 & Up PG Care Time/CCT Total # of Minutes Spent Total Time Spent with Patient: Total time spent is greater than 50% in coordination of care (as documented) at patient's floor/unit and/or counseling patient:
[2022-05-14] MEDS ORDERED: GLUCAGON FOR INJ 1 MG VIAL SQ PRN (19:36)
[2022-05-14] MEDS ORDERED: ZOLPIDEM TARTRATE 5 MG TAB PO PRN (19:36)
[2022-05-14] MEDS ORDERED: GLUCOSE 10 TAB/TUBE PO PRN (19:36)
[2022-05-14] MEDS ORDERED: ICU PROTOCOL FOR HYPERGLYCEMIA PRN (19:36)
[2022-05-14] MEDS ORDERED: PHARMACY GLYCEMIC MGMT CONSULT PRN (19:36)
[2022-05-14] MEDS ORDERED: GLUCOSE 40% GEL 15 GM TUBE PO PRN (19:36)
[2022-05-14] MEDS ORDERED: DEXTROSE 50% 50 ML SYRINGE IV PRN (19:36)
[2022-05-14] MEDS ORDERED: CARBOHYDRATES FOR HYPOGLYCEMIA PO PRN (19:36)
[2022-05-14] MEDS: COLCHICINE 0.6 MG TAB PO SCH (20:09)
[2022-05-14] MEDS: INSULIN ASPART PER UNIT SC SCH (20:23)
[2022-05-14] MEDS ORDERED: POTASSIUM CHLORIDE CRTAB 20 MEQ TABCR PO STA (20:50)
--- NOTE | 2022-05-14 20:50 | Critical Care Consultation ---
Date of Consultation May 14, 2022 Assessment & Plan (1) Acute pericardial effusion: Impression: 51-year-old female admitted to ICU following acute pericardial effusion with evidence of tamponade, now status post pericardiocentesis Neuro - CAM ICU: Negative Cardiac - Acute pericardial effusionmarkedly large pericardial effusion seen on CTA chest. Evidence of tamponade and RV failure on echo. -Now status post pericardiocentesis with 1 L removed of straw colored fluid -Pericardial fluid labs pending -Follow cardiology recommendations -Continue colchicine -Continuous monitoring on telemetry -Follow-up repeat echo tomorrow Respiratory - No history of pulmonary disease, lungs clear to auscultation Patient did have small left pleural effusion on CTA, currently asymptomatic. GI - Heart healthy, diabetic diet RENAL/LYTES - Creatinine within normal limits. Monitor routine BMP and replete electrolytes as indicated - Strict I's and O's ENDO - DM type IIhemoglobin A1c pending. Sliding scale -ICU hyperglycemic protocol Hypothyroidcontinue Synthroid HEME - H&H stable, monitor CBC ID - COVID-19 negative. Hold on antibiotics for the time being. Currently afebrile and no leukocytosis. Follow-up pericardial fluid gram stain and culture LINES/IV ACCESS - Peripheral IVs DVT PROPHYLAXIS - SCDs Thank you for allowing us to participate in the care of this patient. Please refer to my attending physician's documentation for any further recommendations. (2) HLD (hyperlipidemia): (3) T2DM (type 2 diabetes mellitus): (4) Chest pain: (5) Shortness of breath: (6) Cardiac tamponade: History of Present Illness Attending Physician: Leonardo Sung MD History of Present Illness Patient is a 51-year-old female with past medical history DM type II, TIA, and DKA with gastroparesis who presented to the emergency department after complaining of 2 weeks of shortness of breath and chest discomfort. Patient recently moved from [place] and has been here for 4 weeks. Patient states that chest pressure is worse with leaning forward or lying flat and she has to sit up. She also complains of cough that started a few days ago with deep breaths. She also reports some palpitations. t. Patient underwent CTA which revealed markedly large pericardial effusion and small left pleural effusion. Bedside echo revealed large pericardial effusion with tamponade physiology with right ventricular diastolic collapse. She underwent heart alert where she received pericardiocentesis in the [employer] from which she had 1000 mL of straw-colored fluid removed. Pigtail/sheath was removed and patient was transferred furred to ICU for further monitoring. On arrival to the ICU the patient appears comfortable and is hemodynamically stable without need for vasopressors and maintaining oxygen saturation on room air without respiratory distress. She denied headaches, syncope, recent illness or fevers, productive cough, congestion, abdominal pain or nausea or vomiting, diarrhea, swelling in hands or feet. Patient states that chest pressure has significantly improved. She is still having some cough with deep breaths. Allergies Allergy/AdvReac Type Severity Reaction Status Date / Time No Known Allergies Allergy Verified 05/14/22 17:50 Home Medications Medication Instructions Recorded Confirmed Type atorvastatin 20 mg tablet (Lipitor) 20 mg PO PM 05/14/22 05/14/22 History cetirizine 10 mg tablet (Zyrtec) 10 mg PO DAILY 05/14/22 05/14/22 History insulin aspart U-100 100 unit/mL 1 sliding scale dose subcut 05/14/22 05/14/22 History subcutaneous solution (Novolog USEASDIRECTD PRN DEPENDS ON BSG. U-100 Insulin aspart) insulin detemir U-100 100 unit/mL 60 - 80 unit subcut HS 05/14/22 05/14/22 History subcutaneous solution (Levemir U-100 Insulin) levothyroxine 50 mcg tablet 50 mcg PO DAILY 05/14/22 05/14/22 History (Euthyrox) lisinopril 2.5 mg tablet 2.5 mg PO DAILY 05/14/22 05/14/22 History ondansetron HCl 4 mg tablet 4 mg PO Q6H PRN NAUSEA/VOMITING 05/14/22 05/14/22 History tramadol 50 mg tablet 50 mg PO Q6H PRN Pain 05/14/22 05/14/22 History zolpidem 10 mg tablet 10 mg PO HS 05/14/22 05/14/22 History Patient History Medical History (Updated 05/14/22 @ 19:32 by Tori Willis PA-C) DKA (diabetic ketoacidosis) Gastroparesis HLD (hyperlipidemia) T2DM (type 2 diabetes mellitus) TIA (transient ischemic attack) Surgical History (Updated 05/14/22 @ 19:29 by Tori Willis PA-C) Hx laparoscopic cholecystectomy Hx of abdominoplasty "tummy tuck" Hx of hysterectomy Family History (Updated 05/14/22 @ 19:29 by Tori Willis PA-C) Father Coronary heart disease Mother Colorectal cancer Breast cancer Social History (Updated 05/14/22 @ 19:29 by Tori Willis PA-C) Smoking Status: Never smoker Hx Alcohol Use: Yes Alcohol type: beer and wine Alcohol Intake Frequency: 2-4 x/Month Hx Substance Use: No Preferred Language: Bur[place]ian Communication Ability: Effective Extension Work Instructor Required: No Beliefs That Will Affect Care: None marital status: Single Current Living Situation: Significant Other Current Living Situation Comment: lives with spouse and resides in [place] most of the time Feels Safe at Home: Yes Safety Concerns: Feels Safe At This Time Review of Systems Review of Systems: All systems reviewed & are unremarkable except as noted in HPI & below Physical Exam Constitutional: cooperative and comfortable Eyes: PERRL, conjunctivae normal, anicteric sclerae ENMT: external ear and nose normal, oropharynx normal Neck: trachea midline, no thyromegaly Respiratory: normal respiratory effort, lungs clear to auscultation Cardiovascular: RRR, no murmur, no edema Heart Sounds: normal S1 and normal S2 Extremities: normal capillary refill; no edema Gastrointestinal (Abdomen): normal bowel sounds, soft, nontender, no hepatosplenomegaly Musculoskeletal: no cyanosis or clubbing, extremities motor strength 5/5 Skin: no rashes, warm and dry Neurologic: PERRL, EOMI, accommodation nl, no face palsy, no dysarthria Psychiatric: A+Ox3, euthymic affect Results & Data Results & Data ([facility]) Vital Signs (Past 12 Hours) Vital Signs Temp Pulse Pulse Resp BP BP Pulse Ox 05/14/22 20:13 90 05/14/22 19:36 36.3 C L 05/14/22 19:36 05/14/22 19:10 36.3 C L 88 21 116/71 94 05/14/22 17:50 93 H 18 125/90 93 05/14/22 17:00 85 16 116/77 97 05/14/22 16:23 93 H 18 127/84 99 05/14/22 15:36 98 05/14/22 15:36 97 H 18 119/78 98 05/14/22 13:55 36.6 C 96 H 20 144/84 H 98 Pulse Ox O2 Del Method O2 Del Method 05/14/22 20:13 05/14/22 19:36 05/14/22 19:36 96 Room Air 05/14/22 19:10 Room Air 05/14/22 17:50 Room Air 05/14/22 17:00 Room Air 05/14/22 16:23 Room Air 05/14/22 15:36 Room Air 05/14/22 15:36 Room Air 05/14/22 13:55 Room Air Coding Level of Care Code 08229 Inpt Consult Level 3 Diagnoses Acute pericardial effusion I30.9 HLD (hyperlipidemia) E78.5 T2DM (type 2 diabetes mellitus) E11.9 Chest pain R07.1 Chest pain type: chest pain on breathing Shortness of breath R06.02 Cardiac tamponade I31.4 (1) Chest pain Chest pain type: chest pain on breathing Qualified Code(s): R07.1 - Chest pain on breathing
[2022-05-14] MEDS ORDERED: INSULIN ASPART PER UNIT SC SCH (21:00)
[2022-05-14] MEDS ORDERED: LANTUS PER UNIT CHARGE SQ SCH (21:00)
[2022-05-14] MEDS: ATORVASTATIN 20 MG TAB PO SCH (21:10)
[2022-05-15] MEDS: INSULIN ASPART PER UNIT SC SCH ×6 (00:15→21:11)
[2022-05-15] MEDS ORDERED: LORazepam 0.5 MG in SYRINGE 0.25 ML IV STA (00:39)
[2022-05-15] MEDS ORDERED: LORazepam 0.5 MG TAB PO PRN (01:09)
--- NOTE | 2022-05-15 01:24 | Communication Note ---
Date of Service: May 15, 2022 Called by ICU team ~1215 due patient developing acute respiratory distress and chest pain. Seen at bedside. Tachypneic, coughing and tachycardic to 100s. Blood pressure stable in 130s. Endorsed LT sided chest heaviness and inability to catch her breath. Chest discomfort pleuritic, positional. Significant epigastric tenderness. Minimal tenderness at access site. ECG showed sinus rhythm with no ST changes. CXR (my read) trace LT pleural effusion, small infiltrate/atelectasis unchanged from admission. Bedside quick-look echo showed trace to small, circumferential pericardial effusion, slightly enlarged from immediately after pericardiocentesis. No evidence of RV collapse or early tamponade. Impression: - No significant reaccumulation of pericardial fluid. - CP does not represent ACS. - Possible pericarditis, question anxiety component. Plan to start NSAIDS along with colchicine. Repeat formal echo in AM. Consider repeat non-con CT chest/abd if symptoms persist.
[2022-05-15] MEDS ORDERED: fentaNYL citrate 100 MCG/2 ML VIAL IV PRN (01:30)
[2022-05-15] MEDS ORDERED: fentaNYL citrate 100 MCG/2 ML VIAL ONE (01:31)
[2022-05-15] MEDS: IBUPROFEN 600 MG TAB PO SCH ×4 (01:33→22:52)
[2022-05-15] MEDS: LEVOTHYROXINE SODIUM 50 MCG TABLET PO SCH (06:13)
[2022-05-15 06:41] LABS: Basophils # (auto) 0.04 K/uL (0-0.2); Basophils % (auto) 0.4 %; Eosinophils # (auto) 0.08 K/uL (0-0.50); Eosinophils % (auto) 0.8 %; Hemoglobin 13.2 g/dl (12.0-16.0); Immature Granulocytes # (auto) 0.04 K/uL (0.00-0.02); Immature Granulocytes % (auto) 0.4 %; Lymphocytes # (auto) 2.61 K/uL (1.2-3.4); Lymphocytes % (auto) 24.5 %; Mean Corpuscular Hemoglobin 28.8 pg (25.0-34.0); Mean Corpuscular Volume 87.1 fL (80.0-100.0); Monocytes # (auto) 0.51 K/uL (0.24-0.82); Monocytes % (auto) 4.8 %; Neutrophils # (auto) 7.36 K/uL (1.4-6.5); Neutrophils % (auto) 69.1 %; Platelet Count 174 K/uL (130-400); RDW Coefficient of Variation 13.2 % (11.5-14.5); RDW Standard Deviation 41.6 fL (36.4-46.3); Red Blood Count 4.59 M/uL (3.93-5.22); White Blood Count 10.64 K/ul (4.8-10.8)
[2022-05-15 07:33] LABS: Albumin Level 3.6 gm/dl (3.4-5.0); BUN Creatinine Ratio 16.2 (10-20); Bilirubin Direct 0.1 mg/dl (0-0.2); Bilirubin,Total 0.7 mg/dl (0.2-1.0); C Reactive Protein 1.47 mg/dl (0-0.5); Calcium 8.7 mg/dl (8.5-10.1); Creatinine Clr Calc Pharmacy 84.5 ml/min; Est GFR (African American) 118.2 ml/min; Potassium 3.8 mmol/L (3.5-5.1); Total Protein 6.8 gm/dl (6.0-8.3)
--- NOTE | 2022-05-15 07:43 | XRay Report ---
XR chest 1V portable CLINICAL HISTORY: chest pain, short of breath COMPARISON STUDY: Chest radiograph and chest CT May 14, 2022. FINDINGS: Cardiac silhouette is now normal in size following pericardiocentesis. Left basilar opacity persists. There is no pneumothorax. No pneumomediastinum is identified. Pulmonary vascular congestio n without overt pulmonary edema. Cholecystectomy clips are incidentally noted. IMPRESSION: 1. Normal cardiac silhouette following pericardiocentesis. 2. Left basilar opacity suggestive of atelectasis. 3. Pulmonary vascular congestion. No overt pulmonary edema. ACT 112: Negative or not required by law. Electronically signed by: Ad Aj M.D. 05/15/2022 7:42 AM
[2022-05-15 07:44] LABS: Estimated Average Glucose 206 mg/dl; Hemoglobin A1C 8.8 % (4.5-5.6)
--- NOTE | 2022-05-15 08:22 | Critical Care Progress Note ---
Date of Service May 15, 2022 Assessment & Plan (1) Acute pericardial effusion: (2) Cardiac tamponade: (3) Type 1 diabetes mellitus: (4) Cough: Plan Impression: 51-year-old female presenting with acute pericardial effusion requiring pericardiocentesis. She has been initiated on nonsteroidal anti- inflammatories and colchicine and is improved this morning. Recommendations: 1. Pericardial effusion: Symptomatically much better. Follow-up echo pending this morning. Pericardial fluid studies pending and will need to be followed. Continue colchicine and nonsteroidal anti-inflammatories. 2. Cough: No evidence of asthma or reflux. We will pursue a trial of Tessalon to see if this offers her clinical improvement. 3. Diabetes: Glycemic control per protocol. Discussed with critical care nurse and patient at bedside. The patient is stable to transfer out of the ICU. Critical care services will sign off. Please call if we can be of additional assistance Admission and Anticipated Discharge Date Admission Date: May 14, 2022 Subjective Patient seen and examined. EMR reviewed. The patient states that she feels much better. Her chest pain is resolved. She is having a dry nonproductive cough. She denies any reflux or wheezing. No prior history of asthma. She feels some tightness along her back. No fevers chills or night sweats. No additional palpitations. No lower extremity edema. Review of Systems Review of Systems: All systems reviewed & are unremarkable except as noted in Subjective Physical Exam Constitutional: WD/WN, vitals as above Neck: trachea midline, no thyromegaly Respiratory: normal respiratory effort, lungs clear to auscultation Cardiovascular: RRR, no murmur, no edema Gastrointestinal (Abdomen): normal bowel sounds, soft, nontender, no hepatosplenomegaly Musculoskeletal: Extremities: extremities normal to inspection Skin: no rashes, warm and dry Neurologic: Nonfocal exam Lymphatic: no cervical lymphadenopathy Results & Data Results & Data ([facility]) Vital Signs (Past 12 Hours) Vital Signs Temp Pulse Pulse Resp BP BP Pulse Ox 05/15/22 06:00 71 13 96 05/15/22 06:00 88/60 L 05/15/22 05:00 75 14 96 05/15/22 05:00 109/63 05/15/22 04:00 75 17 94 05/15/22 04:00 89/57 L 05/15/22 03:00 79 17 93 08/12/22 03:00 96/61 L 05/15/22 02:00 81 15 93 05/15/22 02:00 122/67 05/15/22 04:00 36.6 C 05/15/22 02:46 93 05/15/22 02:40 89 L 05/15/22 02:00 81 14 122/67 93 05/15/22 01:00 105 H 16 126/80 95 05/15/22 00:00 36.4 C L 98 H 25 H 139/90 95 05/14/22 23:00 83 16 137/69 92 05/14/22 23:11 84 05/14/22 22:00 83 16 130/78 95 05/14/22 21:00 84 21 112/72 97 05/14/22 20:30 90 18 138/90 99 O2 Del Method O2 Flow Rate 05/15/22 06:00 05/15/22 06:00 05/15/22 05:00 05/15/22 05:00 05/15/22 04:00 Nasal Cannula 2 05/15/22 04:00 05/15/22 03:00 05/15/22 03:00 05/15/22 02:00 05/15/22 02:00 05/15/22 04:00 05/15/22 02:46 Nasal Cannula 2 05/15/22 02:40 Room Air 05/15/22 02:00 Room Air 05/15/22 01:00 Room Air 05/15/22 00:00 Room Air 05/14/22 23:00 05/14/22 23:11 05/14/22 22:00 Room Air 05/14/22 21:00 05/14/22 20:30 Room Air Critical Care Results & Data Vital Signs (Past 12 Hours) Vital Signs Temp Pulse Pulse Resp BP BP Pulse Ox 05/15/22 06:00 71 13 96 05/15/22 06:00 88/60 L 05/15/22 05:00 75 14 96 05/15/22 05:00 109/63 05/15/22 04:00 75 17 94 05/15/22 04:00 89/57 L 05/15/22 03:00 79 17 93 05/15/22 03:00 96/61 L 05/15/22 02:00 81 15 93 05/15/22 02:00 122/67 05/15/22 04:00 36.6 C 05/15/22 02:46 93 05/15/22 02:40 89 L 05/15/22 02:00 81 14 122/67 93 05/15/22 01:00 105 H 16 126/80 95 05/15/22 00:00 36.4 C L 98 H 25 H 139/90 95 05/14/22 23:00 83 16 137/69 92 05/14/22 23:11 84 05/14/22 22:00 83 16 130/78 95 05/14/22 21:00 84 21 112/72 97 05/14/22 20:30 90 18 138/90 99 O2 Del Method O2 Flow Rate 05/15/22 06:00 05/15/22 06:00 05/15/22 05:00 05/15/22 05:00 05/15/22 04:00 Nasal Cannula 2 05/15/22 04:00 05/15/22 03:00 05/15/22 03:00 05/15/22 02:00 05/15/22 02:00 05/15/22 04:00 05/15/22 02:46 Nasal Cannula 2 05/15/22 02:40 Room Air 05/15/22 02:00 Room Air 05/15/22 01:00 Room Air 05/15/22 00:00 Room Air 05/14/22 23:00 05/14/22 23:11 05/14/22 22:00 Room Air 05/14/22 21:00 05/14/22 20:30 Room Air Lab & Micro Results (Past 24 Hours) RBC 4.59 M/uL (3.93-5.22) 05/15/22 WBC 10.64 K/ul (4.8-10.8) 05/15/22 Hgb 13.2 g/dl (12.0-16.0) 05/15/22 Hct 40.0 % (34.1-44.9) 05/15/22 MCV 87.1 fL (80.0-100.0) 05/15/22 MCH 28.8 pg (25.0-34.0) 05/15/22 MCHC 33.0 g/dL (32.0-36.0) 05/15/22 RDW Standard Deviation 41.6 fL (36.4-46.3) 05/15/22 RDW Coefficient of Variation 13.2 % (11.5-14.5) 05/15/22 Plt Count 174 K/uL (130-400) 05/15/22 MPV 9.0 fL (9.4-12.3) L 05/15/22 Neutrophils (%) (Auto) 69.1 % 05/15/22 Lymphocytes (%) (Auto) 24.5 % 05/15/22 Monocytes # (Auto) 0.51 K/uL (0.24-0.82) 05/15/22 Eosinophils # (Auto) 0.08 K/uL (0-0.50) 05/15/22 Immature Granulocyte % (Auto) 0.4 % 05/15/22 Neutrophils # (Auto) 7.36 K/uL (1.4-6.5) H 05/15/22 Lymphocytes # (Auto) 2.61 K/uL (1.2-3.4) 05/15/22 Monocytes # (Auto) 0.51 K/uL (0.24-0.82) 05/15/22 Eosinophils # (Auto) 0.08 K/uL (0-0.50) 05/15/22 Basophils # (Auto) 0.04 K/uL (0-0.2) 05/15/22 Immature Granulocyte # (Auto) 0.04 K/uL (0.00-0.02) H 05/15 Na 138 mmol/L (136-145) 05/15/22 K 3.8 mmol/L (3.5-5.1) 05/15/22 Cl 106 mmol/L (98-107) 05/15/22 CO2 25 mmol/L (21-32) 05/15/22 Anion Gap 7 (3-11) 05/15/22 BUN 11 mg/dl (6-23) 05/15/22 Creatinine 0.68 mg/dl (0.6-1.2) 05/15/22 Estimated GFR ( Amer) 118.2 ml/min 05/15/22 Estimated GFR (Non-Af Amer) 102.0 ml/min 05/15/22 BUN/Creatinine Ratio 16.2 (10-20) 05/15/22 Glu 227 mg/dl (70-99(Fasting)) H 05/15/22 Ca 8.7 mg/dl (8.5-10.1) 05/15/22 Total Bilirubin 0.7 mg/dl (0.2-1.0) 05/15/22 Direct Bilirubin 0.1 mg/dl (0-0.2) 05/15/22 AST 12 U/L (13-39) L 05/15/22 ALT 11 U/L (7-52) 05/15/22 Alkaline Phosphatase 96 U/L (34-104) 05/15/22 TP 6.8 gm/dl (6.0-8.3) 05/15/22 Albumin 3.6 gm/dl (3.4-5.0) 05/15/22 Globulin 3.7 gm/dl (2.5-4.0) 05/14/22 Albumin/Globulin Ratio 1.2 (0.9-2) 05/14/22 Mg 2.0 mg/dl (1.7-2.4) 05/14/22 14:25 Calcium Level 8.7 mg/dl (8.5-10.1) 05/15/22 06:16 Prothromb Time International Ratio 1.1 (0.9-1.1) 05/14/22 14:2 5 Microbiology 05/14/22 18:45 Gram Stain - Final Pericardial Fluid Diagnostic Findings (Past 24 Hours) Chest X-Ray 05/14/22 14:03 XR chest 1V portable CLINICAL HISTORY: SOB TECHNIQUE: Single frontal radiograph of the chest was obtained. Comparison: None available at the time of this dictation. FINDINGS: No lines and tubes are seen. Cardiomegaly is noted. Linear density in the left retrocardiac region may represent atelectasis. No evidence of pleural effusion or pneumothorax. IMPRESSION: Cardiomegaly. Likely atelectasis in the left lung. ACT 112: Negative or not required by law. Electronically signed by: Joe Whitfield M.D. 05/14/2022 3:56 PM Chest CTA 05/14/22 16:02 CT angio chest PE protocol CLINICAL HISTORY: Left-sided chest pain and cough. Shortness of breath. COMPARISON STUDY: Portable chest from 05/14/2022 CT DOSE: 221.28 mGy.cm TECHNIQUE: CT Angio of the chest was performed.followed by image post processing with coronal, and sagittal MIP reformats. Contrast Volume: Optiray 320, 120 ml FINDINGS: Vasculature: There is homogeneous perfusion of the pulmonary vasculature bilaterally. No intraluminal filling defects or evidence for pulmonary embolus is seen. Airway: The airway is clear. No endobronchial lesion is identified. Lungs and pleural: There is elevation of the left hemidiaphragm with left basilar atelectasis. The lungs are otherwise clear of acute alveolar opacities, air bronchograms or pulmonary nodules. Mediastinum: There is no evidence for pathologic adenopathy. The overall heart size is markedly enlarged due to a markedly large pericardial effusion. The underlying cardiac parenchyma is of normal size. The thoracic aorta is within normal limits. Upper abdomen: The adrenal glands are normal bilaterally. Osseous structures: There is no acute osseous pathology. Impression: 1. No CTA evidence for pulmonary embolus. 2. Markedly large pericardial effusion producing marked cardiomegaly. 2. Small left pleural effusion and left basilar atelectasis. ACT 112: Negative or not required by law. Electronically signed by: Garrick Vuong M.D. 05/14/2022 5:26 PM Chest X-Ray 05/15/22 00:54 XR chest 1V portable CLINICAL HISTORY: chest pain, short of breath COMPARISON STUDY: Chest radiograph and chest CT May 14, 2022. FINDINGS: Cardiac silhouette is now normal in size following pericardiocentesis. Left basilar opacity persists. There is no pneumothorax. No pneumomediastinum is identified. Pulmonary vascular congestion without overt pulmonary edema. Cholecystectomy clips are incidentally noted. IMPRESSION: 1. Normal cardiac silhouette following pericardiocentesis. 2. Left basilar opacity suggestive of atelectasis. 3. Pulmonary vascular congestion. No overt pulmonary edema. ACT 112: Negative or not required by law. Electronically signed by: Ad Aj M.D. 05/15/2022 7:42 AM I & O Totals 24 Hours 05/14/22 05/15/22 05/16/22 06:59 06:59 06:59 Output Total 1000 / 1000 Balance -1000 / -1000 Cumulative 05/14/22 13:47 thru 05/15/22 02:00 Output Total 1000 Balance -1000 RT Ventilator Mngmt (Last Documented) Ventilator Ordered Settings Respiratory Rate 13 05/15/22 06:00 Ventilator - PT Measurements Respiratory Rate 13 Coding Level of Care Code 33271 Subseq Hosp Care Lvl 2 Diagnoses Acute pericardial effusion I30.9 Cardiac tamponade I31.4 Type 1 diabetes mellitus E10.69 Diabetes mellitus complication status: with other specified complication Cough R05.9 (1) Type 1 diabetes mellitus Diabetes mellitus complication status: with other specified complication Qualified Code(s): E10.69 - Type 1 diabetes mellitus with other specified complication
[2022-05-15] MEDS: lisinopril 2.5 MG TAB PO SCH (09:14)
[2022-05-15] MEDS: COLCHICINE 0.6 MG TAB PO SCH (09:14)
[2022-05-15] MEDS: BENZONATATE 100 MG CAPSULE PO PRN (09:14)
[2022-05-15] MEDS ORDERED: LANTUS PER UNIT CHARGE SQ ONE (09:15)
--- NOTE | 2022-05-15 10:14 | Pharmacy Report ---
Pharmacy Glycemic Short Note 2 - Date of Service May 15, 2022 - Glycemic Short BSG Results (Last 24 hours): 05/14/22 05/14/22 05/14/22 14:25 20:01 20:19 Glucose 77 POC Glucose 49 L* 86 05/14/22 05/15/22 05/15/22 23:58 04:11 06:16 Glucose 227 H POC Glucose 220 H 264 H OUTPATIENT ANTIDIABETIC REGIMEN: * Levemir 60-80 units HS * Novolog SSI HbA1C: 8.8% ASSESSMENT: * 51 YO female admitted to ICU with an acute pericardial effusion s/p pericardiocentesis. She has a history of type 2 diabetes on insulin at home. Pharmacy consulted to assist with glycemic management on admission. * BSGs yesterday evening low - 49-86mg/dL. She received no basal or bolus insulin yesterday in the hospital. BSGs have since rebounded and are 264- 227mg/dL this AM. She is hemodynamically stable and ordered a heart healthy diet. Other stressors stable. * Will initiate basal/bolus insulin this AM (~ mod-severe stress), Lantus 10 units X 1 this AM, 15 units HS, and Novolog ACHS. PLAN FOR INPATIENT GLYCEMIC CONTROL: * Hold outpatient oral diabetes medications * Basal insulin * Lantus 10 units SQ qAM, 15units HS * Bolus insulin * NovoLog per scale ACHS or Q6hrs while NPO * Goal Range: Low 110 mg/dL - High 140 mg/dL * Correction Factor: 25 mg/dL/unit * Nutritional / Prandial insulin per carb ratio of 1 unit per 8 grams CHO consumed
--- NOTE | 2022-05-15 11:31 | Cardiology Progress Note ---
Date of Service May 15, 2022 Assessment & Plan (1) Acute pericardial effusion: Plan: -Patient status post emergent pericardiocentesis yielding 1 L of clear yellow pericardial fluid, 05/14/2022. -Pericardial drain removed at the time of completion of procedure. -Follow-up echocardiogram today reveals small residual circumferential pericardial fluid, most significant fluid collection adjacent to the anterolateral wall and apical four-chamber, inferior vena cava collapses appropriately with inspiration, no evidence of tamponade. Small left pleural effusion noted, LVEF 55 to 60%. -As to the etiology of the pericardial effusion, D-dimer had been elevated, very minimal elevation in her inflammatory markers with initial ESR at 50 mm/h, CRP 1 mg/dL prior to procedure, 1.47 post. Diagnostics: -Fluid has been sent off for standard evaluation including gram stain and culture, cytology, AFB culture. -HIV screen obtained, results pending. -CARLOS, rheumatoid factor, Lyme screen, TSH -Future considerations include CEA, but irregardless, would recommend that polo ent complete age-appropriate cancer screenings as an outpatient such as mammogram, Pap, colonoscopy. Therapeutics: Colchicine 0.6 mg twice daily, 3-month course tentatively planned. Ibuprofen 600 mg p.o. every 6 hours for now. And PPI. -SCDs for DVT prophylaxis. -Patient stable from cardiology perspective to be transferred to PCU/telemetry. Dr Santiago griffin 05/16/2022. Admission and Anticipated Discharge Date Admission Date: May 14, 2022 Subjective Patient seen, ICU room 112. Vital signs stable. Telemetry reveals sinus rhythm in the 70s overnight. Patient apparently had recurrent chest related symptoms overnight last night, was reassessed by Dr. Cabrera. Symptoms subsequently improved with administration of Ativan and ibuprofen, and patient does note history of anxiety. Review of Systems Review of Systems: All systems reviewed & are unremarkable except as noted in HPI & below Physical Exam Physical Exam: Temp Pulse Resp BP Pulse Ox O2 Del Method O2 Flow Rate 36.5 C 80 22 98/55 L 91 2 05/15/22 08:00 05/15/22 08:00 05/15/22 08:00 05/15/22 08:00 05/15/22 08:00 05/15/22 08:00 05/15/22 04:00 Constitutional: WD/WN, vitals as above Eyes: PERRL, conjunctivae normal, anicteric sclerae Respiratory: + cough (cough noted with inspiration ) Auscultation: + diminished lung sounds (decreased BS at left base ) Cardiovascular: Rate/Rhythm: regular rate and regular rhythm (Decreased volume of heart sounds) Extremities: no edema Chest (Breasts): Additional Comments: Pericardiocentesis site clean dry and intact, drain removed post procedure, no erythema. Gastrointestinal (Abdomen): normal bowel sounds, soft, nontender, no hepatosplenomegaly Skin: no rashes, warm and dry Neurologic: PERRL, EOMI, accommodation nl, no face palsy, no dysarthria Results & Data ([facility]) Laboratory Results Cardiac Enzymes 05/14/22 05/14/22 05/15/22 Range/Units 14:25 14:25 06:16 AST 12 L 12 L (13-39) U/L Troponin I High Sens < 2.3 (0-14) pg/ml B-Natriuretic Peptide 16 (0-100) pg/ml Coagulation 05/14/22 05/14/22 Range/Units 14:25 14:25 PT 12.1 H (9.0-12.0) Seconds APTT 25.5 (21.0-31.0) Seconds B-Natriuretic Peptide 16 (0-100) pg/ml Lipids 05/15/22 Range/Units 06:16 Triglycerides 82 (0-150) mg/dl Cholesterol 71 (0-200) mg/dl HDL Cholesterol 24 mg/dl Cholesterol/HDL Ratio 3.0 (0-5) CBC 05/14/22 05/15/22 Range/Units 14:25 06:16 WBC 8.54 10.64 (4.8-10.8) K/ul RBC 4.67 4.59 (3.93-5.22) M/uL Hgb 13.5 13.2 (12.0-16.0) g/dl Hct 41.2 40.0 (34.1-44.9) % Plt Count 184 174 (130-400) K/uL Neut # (Auto) 5.38 7.36 H (1.4-6.5) K/uL Lymph # (Auto) 2.64 2.61 (1.2-3.4) K/uL [place] # (Auto) 0.37 0.51 (0.24-0.82) K/uL Eos # (Auto) 0.10 0.08 (0-0.50) K/uL Baso # (Auto) 0.04 0.04 (0-0.2) K/uL Comprehensive Metabolic Panel 05/14/22 05/15/22 Range/Units 14:25 06:16 Sodium 142 138 (136-145) mmol/L Potassium 3.7 3.8 (3.5-5.1) mmol/L Chloride 108 H 106 (98-107) mmol/L Carbon Dioxide 29 25 (21-32) mmol/L BUN 8 11 (6-23) mg/dl Creatinine 0.67 0.68 (0.6-1.2) mg/dl Glucose 77 227 H (70-99(Fasting)) mg/dl Calcium 9.8 8.7 (8.5-10.1) mg/dl Direct Bilirubin 0.1 (0-0.2) mg/dl AST 12 L 12 L (13-39) U/L ALT 11 11 (7-52) U/L Alkaline Phosphatase 103 96 (34-104) U/L Total Protein 8.1 6.8 (6.0-8.3) gm/dl Albumin 4.4 3.6 (3.4-5.0) gm/dl I
[2022-05-15 13:00] LABS: Lyme Ab IgG w/WB Rflx Negative (Negative); Lyme Ab IgM w/WB Rflx Negative (Negative)
[2022-05-15] MEDS: PANTOprazole 40 MG TAB PO SCH (13:04)
--- NOTE | 2022-05-15 13:29 | Hospitalist Progress Note ---
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 Admitting ESR 55 and CRP 1.0. Admitting CTA chest: No PE, large pericardial effusion. Admitting echo consistent with tamponade and interventricular dependence with very large circumferential pericardial effusion Lyme screen negative. TSH normal. Status post emergent pericardiocentesis by Dr. Cabrera, 05/14/22 --> removed 1 L of straw-colored fluid. f/u 05/14 pericardial studies and culture Cardiology on board, patient on colchicine/ibuprofen/PPI for prophylaxis. Patient was monitored in ICU, downgrade to PCU telemetry. HIV screen pending, CARLOS pending. Patient to get age-appropriate cancer screening as an outpatient [mammogram/Pap/colonoscopy] and CEA. Patient reports improvement in her symptoms after pericardiocentesis with impro vement in repeat CXR and echo. Continue to monitor in PCU telemetry. T2DM Per patient last A1c was 6.7, here 8.8 Lantus/NovoLog per protocol Glycemic pharmacy on board, will need dose up titration. And close follow-up with PCP for continued management. continue lisinopril for renal protection Hyperlipidemia Continue statin Hypothyroidism Continue levothyroxine DVT prophylaxis SCDs Dispo: PCU telemetry. Full code PCP: Patient resides in [place], has been in area since April 06 while significant other is working Admission and Anticipated Discharge Date Admission Date: May 14, 2022 Subjective Patient seen and examined at bedside as a follow-up of acute pericardial effusion/cardiac tamponade status post emergent pericardiocentesis by Dr. Cabrera 05/14/2022. Patient was lying in bed, on room air, NAD, denies any new acute events overnight. Patient reports eating okay and moving bowels okay. Patient reports feeling a lot better with regard to her pain, also reports improving upper epigastric pain, denies headache or dizziness or sore throat or cough or acute changes in her bowel or bladder habit. Physical Exam Physical Exam: GENERAL: Alert and oriented x3. NAD, on RA. HEENT: No pallor, no icterus. Pupils equal, round and reactive to light. Oral mucosa moist. NECK: No JVD, no neck masses. HEART: S1 and S2 heard. Regular rate and rhythm. No murmur, no gallop. RESPIRATORY SYSTEM: Normal AP diameter. No accessory muscle use. No wheezing, no crackles. ABDOMEN: Soft, bowel sounds present, vague epigastric tender x mild, no distention. discoloration (from insulin shots) b/l lower belly, no s/s infection. CENTRAL NERVOUS SYSTEM: No facial droop. Speech is clear. Obeys simple commands. Moves extremities. EXTREMITIES: No edema, no erythema seen. Results & Data Results & Data ([facility]) Vital Signs (Past 12 Hours) Vital Signs Temp Pulse Pulse Resp BP BP Pulse Ox 05/15/22 12:42 36.5 C 84 18 94/50 L 94 05/15/22 07:00 71 15 106/68 96 05/15/22 08:00 36.5 C 80 22 98/55 L 91 05/15/22 06:00 71 13 96 05/15/22 06:00 88/60 L 05/15/22 05:00 75 14 96 05/15/22 05:00 109/63 05/15/22 04:00 75 17 94 05/15/22 04:00 89/57 L 05/15/22 03:00 79 17 93 05/15/22 03:00 96/61 L 05/15/22 02:00 81 15 93 05/15/22 02:00 122/67 05/15/22 04:00 36.6 C 05/15/22 02:46 93 05/15/22 02:40 89 L 05/15/22 02:00 81 14 122/67 93 O2 Del Method O2 Flow Rate 05/15/22 12:42 Room Air 05/15/22 07:00 05/15/22 08:00 Room Air 05/15/22 06:00 05/15/22 06:00 05/15/22 05:00 05/15/22 05:00 05/15/22 04:00 Nasal Cannula 2 05/15/22 04:00 05/15/22 03:00 05/15/22 03:00 05/15/22 02:00 05/15/22 02:00 05/15/22 04:00 05/15/22 02:46 Nasal Cannula 2 05/15/22 02:40 Room Air 05/15/22 02:00 Room Air
[2022-05-15] MEDS ORDERED: LANTUS PER UNIT CHARGE SQ SCH ×2 (21:00)
[2022-05-15] MEDS: ATORVASTATIN 20 MG TAB PO SCH (21:10)
[2022-05-16] MEDS ORDERED: INSULIN ASPART PER UNIT SC SCH (02:00)
[2022-05-16] MEDS: traMADol HCL 50 MG TABLET PO PRN (03:56)
[2022-05-16] MEDS: LEVOTHYROXINE SODIUM 50 MCG TABLET PO SCH (05:38)
[2022-05-16] MEDS: IBUPROFEN 600 MG TAB PO SCH ×3 (05:38→18:52)
--- NOTE | 2022-05-16 05:45 | Electrocardiogram Report ---
Test Reason : Blood Pressure : / mmHG Vent. Rate : 088 BPM Atrial Rate : 088 BPM P-R Int : 120 ms QRS Dur : 078 ms QT Int : 396 ms P-R-T Axes : 048 010 050 degrees QTc Int : 479 ms Normal sinus rhythm Low voltage QRS Nonspecific T wave abnormality Abnormal ECG No previous ECGs available Confirmed by Jean Marie Chaidez ([id number]) on 05/16/2022 5:45:15 AM Referred By: Confirmed By:Jean Marie Chaidez
--- NOTE | 2022-05-16 06:10 | Electrocardiogram Report ---
Test Reason : Blood Pressure : / mmHG Vent. Rate : 094 BPM Atrial Rate : 094 BPM P-R Int : 132 ms QRS Dur : 086 ms QT Int : 388 ms P-R-T Axes : 065 -19 067 degrees QTc Int : 485 ms Normal sinus rhythm Nonspecific T wave abnormality Prolonged QT When compared with ECG of 14-MAY-2022 14:18, No significant change Confirmed by Jean Marie Chaidez ([id number]) on 05/16/2022 6:09:54 AM Referred By: REFERRED SELF Confirmed By:Jean Marie Chaidez
[2022-05-16 06:54] LABS: Basophils # (auto) 0.05 K/uL (0-0.2); Basophils % (auto) 0.5 %; Eosinophils # (auto) 0.16 K/uL (0-0.50); Eosinophils % (auto) 1.8 %; Hematocrit (blood only) 43.9 % (34.1-44.9); Hemoglobin 14.5 g/dl (12.0-16.0); Immature Granulocytes # (auto) 0.03 K/uL (0.00-0.02); Immature Granulocytes % (auto) 0.3 %; Lymphocytes # (auto) 3.01 K/uL (1.2-3.4); Mean Corpuscular Hemoglobin 28.8 pg (25.0-34.0); Mean Corpuscular Volume 87.1 fL (80.0-100.0); Monocytes # (auto) 0.48 K/uL (0.24-0.82); Monocytes % (auto) 5.3 %; Neutrophils # (auto) 5.38 K/uL (1.4-6.5); Neutrophils % (auto) 59.1 %; Platelet Count 198 K/uL (130-400); RDW Coefficient of Variation 13.1 % (11.5-14.5); RDW Standard Deviation 41.1 fL (36.4-46.3); Red Blood Count 5.04 M/uL (3.93-5.22); White Blood Count 9.11 K/ul (4.8-10.8)
[2022-05-16 07:15] LABS: Albumin Level 4.1 gm/dl (3.4-5.0); Bilirubin Direct 0.1 mg/dl (0-0.2); Bilirubin,Total 0.8 mg/dl (0.2-1.0); Calcium 9.1 mg/dl (8.5-10.1); Creatinine Clr Calc Pharmacy 88.4 ml/min; Est GFR (Non-African American) 103.5 ml/min; Magnesium 1.9 mg/dl (1.7-2.4); Phosphorus 3.9 mg/dl (2.5-4.9); Potassium 4.4 mmol/L (3.5-5.1); Total Protein 7.8 gm/dl (6.0-8.3)
[2022-05-16] MEDS ORDERED: LANTUS PER UNIT CHARGE SQ STA (07:38)
[2022-05-16] MEDS: INSULIN ASPART PER UNIT SC SCH ×4 (08:27→21:02)
[2022-05-16] MEDS: PANTOprazole 40 MG TAB PO SCH (08:29)
[2022-05-16] MEDS: COLCHICINE 0.6 MG TAB PO SCH (08:29)
[2022-05-16] MEDS: lisinopril 2.5 MG TAB PO SCH (08:31)
--- NOTE | 2022-05-16 11:08 | Cardiology Progress Note ---
Date of Service May 16, 2022 Assessment & Plan (1) Acute pericardial effusion: (2) Cardiac tamponade: (3) S/P pericardiocentesis: Plan Continue ibuprofen 600 mg 4 times daily currently. Recommend gradual taper over 4 weeks. Continue colchicine 0.6 mg daily for 3 months. Etiology of pericardial fusion not well defined. TSH within normal limits, serum Lyme screen negative. CARLOS, rheumatoid factor, and HIV screening pending. Recommend patient complete age-appropriate cancer screenings including mammogram, Pap smear, and colonoscopy. Monitor on telemetry. Recommend repeat limited echocardiogram to reassess pericardial fluid prior to discharge in 24-48 hours. Admission and Anticipated Discharge Date Admission Date: May 14, 2022 Subjective Patient seen examined the bedside. Notes persistent cough since admission. No orthopnea or PND. Denies recurrent chest pressure. Telemetry reveals sinus rhythm in the 70s. Currently treated with high-dose NSAIDs and colchicine. Pericardial fluid culture negative. CARLOS, and rheumatoid factor pending. Review of Systems Review of Systems: All systems reviewed & are unremarkable except as noted in Subjective Physical Exam Constitutional: well nourished; no acute distress Respiratory: no respiratory distress, no labored breathing and no retractions Cardiovascular: Rate/Rhythm: regular rate and regular rhythm; not tachycardic Heart Sounds: normal S1 and normal S2; no murmur Vessels: radial pulses present; no JVD Extremities: no edema Gastrointestinal (Abdomen): Inspection/Auscultation: normal bowel sounds; abdomen not distended Percussion/Palpation: abdomen soft; abdomen nontender, no guarding and abdomen not rigid Neurologic: CN's II-XI intact bilaterally and moves all extremities; no focal motor deficits Psychiatric: A+Ox3, euthymic affect Results & Data ([facility]) Vital Signs (Past 12 Hours) Vital Signs Temp Pulse Pulse Resp BP Pulse Ox O2 Del Method 05/16/22 07:25 36.2 C L 79 18 104/72 90 Room Air 05/16/22 03:52 36.4 C L 76 18 101/68 96 Room Air 05/15/22 23:12 77
[2022-05-16 13:10] LABS: HIV 1 RNA PCR Copies/ML NOT DETECTED copies/mL (NOT DETECTED); HIV-1 RNA Log Copies/mL NOT DETECTED (NOT DETECTED)
[2022-05-16] MEDS ORDERED: DICLOFENAC SOD 1% GEL 100 GM TUBE EXT PRN (15:47)
--- NOTE | 2022-05-16 15:47 | Hospitalist Progress Note ---
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 Admitting ESR 55 and CRP 1.0. Admitting CTA chest: No PE, large pericardial effusion. Admitting echo consistent with tamponade and interventricular dependence with very large circumferential pericardial effusion Lyme screen negative. TSH normal. Status post emergent pericardiocentesis by Dr. Cabrera, 05/14/22 --> removed 1 L of straw-colored fluid. f/u 05/14 pericardial studies and culture Cardiology on board, patient on colchicine/ibuprofen/PPI for prophylaxis. HIV and lyme screen negative, CARLOS and RF pending. Patient to get age- appropriate cancer screening as an outpatient [mammogram/Pap/colonoscopy] and CEA. Patient reports improvement in her symptoms after pericardiocentesis with improvement in repeat CXR and echo. Continue to monitor in PCU telemetry. T2DM Per patient last A1c was 6.7, here 8.8 Lantus/NovoLog per protocol Glycemic pharmacy on board, will need dose up titration. And close follow-up with PCP for continued management. continue lisinopril for renal protection Hyperlipidemia Continue statin Hypothyroidism Continue levothyroxine DVT prophylaxis SCDs Dispo: PCU telemetry. Full code PCP: Patient resides in [place], has been in area since April 06 while significant other is working Admission and Anticipated Discharge Date Admission Date: May 14, 2022 Subjective Patient seen and examined at bedside as a follow-up of acute pericardial effusion/cardiac tamponade status post emergent pericardiocentesis by Dr. Cabrera 05/14/2022. Patient was lying in bed, on room air, NAD, denies any new acute events overnight. Patient reports eating okay and moving bowels okay. Patient reports feeling a lot better with regard to her pain, also reports improving upper epigastric pain, denies headache or dizziness or sore throat or acute changes in her bowel or bladder habit. Pt does have dry cough and uses zyrtec on regular basis, will order here. Was also complaining of chronic lt shoulder pain, will order Voltaren gel and eval improvement. Physical Exam Physical Exam: GENERAL: Alert and oriented x3. NAD, on RA. HEENT: No pallor, no icterus. Pupils equal, round and reactive to light. Oral mucosa moist. engorged throat, no erythema/s/s of infection. NECK: No JVD, no neck masses. HEART: S1 and S2 heard. Regular rate and rhythm. No murmur, no gallop. RESPIRATORY SYSTEM: Normal AP diameter. No accessory muscle use. No wheezing, no crackles. ABDOMEN: Soft, bowel sounds present, vague epigastric tender x mild, no distention. discoloration (from insulin shots) b/l lower belly, no s/s infection. CENTRAL NERVOUS SYSTEM: No facial droop. Speech is clear. Obeys simple commands. Moves extremities. EXTREMITIES: No edema, no erythema seen. Results & Data Results & Data ([facility]) Vital Signs (Past 12 Hours) Vital Signs Temp Pulse Pulse Resp BP Pulse Ox O2 Del Method 05/16/22 14:19 75 05/16/22 06:15 87 05/16/22 11:29 36.5 C 78 18 111/77 97 Room Air 05/16/22 07:25 36.2 C L 79 18 104/72 90 Room Air 05/16/22 03:52 36.4 C L 76 18 101/68 96 Room Air
[2022-05-16] MEDS: ATORVASTATIN 20 MG TAB PO SCH (21:02)
[2022-05-16] MEDS: CETIRIZINE HCL 10 MG TABLET PO SCH (21:02)
[2022-05-16] MEDS: LANTUS PER UNIT CHARGE SQ SCH (21:03)
--- NOTE | 2022-05-16 22:22 | XCELERA ---
[id number]
[2022-05-17] MEDS: IBUPROFEN 600 MG TAB PO SCH ×5 (05:58→23:54)
[2022-05-17] MEDS: LEVOTHYROXINE SODIUM 50 MCG TABLET PO SCH (05:58)
[2022-05-17 06:44] LABS: BUN Creatinine Ratio 18.3 (10-20); Calcium 9.1 mg/dl (8.5-10.1); Creatinine Clr Calc Pharmacy 95.8 ml/min; Est GFR (African American) 123.2 ml/min; Est GFR (Non-African American) 106.3 ml/min; Magnesium 1.9 mg/dl (1.7-2.4); Potassium 4.1 mmol/L (3.5-5.1)
[2022-05-17] MEDS ORDERED: LANTUS PER UNIT CHARGE SQ STA (08:00)
[2022-05-17] MEDS: INSULIN ASPART PER UNIT SC SCH ×4 (08:43→21:02)
[2022-05-17] MEDS: PANTOprazole 40 MG TAB PO SCH (08:45)
[2022-05-17] MEDS: COLCHICINE 0.6 MG TAB PO SCH (08:45)
[2022-05-17] MEDS: lisinopril 2.5 MG TAB PO SCH (08:45)
--- NOTE | 2022-05-17 10:47 | Cardiology Progress Note ---
Date of Service May 17, 2022 Assessment & Plan (1) Acute pericardial effusion: (2) Cardiac tamponade: (3) S/P pericardiocentesis: Plan Continue ibuprofen 600 mg 4 times daily currently. Recommend gradual taper over 4 weeks. Continue colchicine 0.6 mg daily for 3 months. Etiology of pericardial fusion not well defined. TSH within normal limits, serum Lyme screen negative. CARLOS, rheumatoid factor, and HIV screening pending. Recommend patient complete age-appropriate cancer screenings including mammogram, Pap smear, and colonoscopy. Results of repeat echocardiogram pending, however, limited review suggest at least moderate circumferential pericardial effusion. Recommend continued hospitalization at this time with repeat imaging in a.m. Close monitoring of hemodynamics and telemetry. Admission and Anticipated Discharge Date Admission Date: May 14, 2022 Subjective Patient seen and examined at the bedside. Feeling well today. Cough mildly improved. Denies shortness of breath or dysphagia. No chest discomfort or palpitations. Review of Systems Review of Systems: All systems reviewed & are unremarkable except as noted in Subjective Physical Exam Constitutional: well nourished; no acute distress Respiratory: no respiratory distress, no labored breathing and no retractions Cardiovascular: Rate/Rhythm: regular rate and regular rhythm; not tachycardic Heart Sounds: normal S1 and normal S2; no murmur Vessels: radial pulses present; no JVD Extremities: no edema Gastrointestinal (Abdomen): Inspection/Auscultation: normal bowel sounds; abdomen not distended Percussion/Palpation: abdomen soft; abdomen nontender, no guarding and abdomen not rigid Neurologic: CN's II-XI intact bilaterally and moves all extremities; no focal motor deficits Psychiatric: A+Ox3, euthymic affect Results & Data ([facility]) Vital Signs (Past 12 Hours) Vital Signs Temp Pulse Pulse Resp BP Pulse Ox O2 Del Method 05/17/22 06:06 83 05/17/22 07:07 36.6 C 88 18 102/69 95 Room Air 05/17/22 03:57 36.6 C 88 16 104/69 96 Room Air 05/16/22 23:03 36.5 C 84 18 134/88 99 Room Air 05/16/22 22:52 80
--- NOTE | 2022-05-17 15:15 | Hospitalist Progress Note ---
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 Admitting ESR 55 and CRP 1.0. Admitting CTA chest: No PE, large pericardial effusion. Admitting echo consistent with tamponade and interventricular dependence with very large circumferential pericardial effusion Lyme screen negative. TSH normal. Status post emergent pericardiocentesis by Dr. Cabrera, 05/14/22 --> removed 1 L of straw-colored fluid. f/u 05/14 pericardial studies and culture Cardiology on board, patient on colchicine/ibuprofen/PPI for prophylaxis. HIV and lyme screen negative, CARLOS and RF pending. Patient to get age- appropriate cancer screening as an outpatient [mammogram/Pap/colonoscopy] and CEA. Patient reports improvement in her symptoms after pericardiocentesis with improvement in postprocedure CXR and echo --> echo on 05/17 with reaccumulation of pericardial fluid without cardiac tamponade. Continue to monitor in PCU telemetry. T2DM Per patient last A1c was 6.7, here 8.8 Lantus/NovoLog per protocol Glycemic pharmacy on board, will need dose up titration. And close follow-up with PCP for continued management. continue lisinopril for renal protection Hyperlipidemia Continue statin Hypothyroidism Continue levothyroxine DVT prophylaxis SCDs Dispo: PCU telemetry. Full code PCP: Patient resides in [place], has been in area since April 06 while significant other is working Admission and Anticipated Discharge Date Admission Date: May 14, 2022 Subjective Patient seen and examined at bedside as a follow-up of acute pericardial effusion/cardiac tamponade status post emergent pericardiocentesis by Dr. Cabrera 05/14/2022. Patient was lying in bed, on room air, NAD, denies any new acute events overnight. Patient reports eating okay and moving bowels okay. Patient reports improving cough and reports being able to sleep better yesterday night. Patient feeling better. Patient denies pain , denies headache or dizziness or sore throat or acute changes in her bowel or bladder habit. Pt does have dry cough and uses zyrtec on regular basis, which is now improving. Physical Exam Physical Exam: GENERAL: Alert and oriented x3. NAD, on RA. HEENT: No pallor, no icterus. Pupils equal, round and reactive to light. Oral mucosa moist. engorged throat, no erythema/s/s of infection. NECK: No JVD, no neck masses. HEART: S1 and S2 heard. Regular rate and rhythm. No murmur, no gallop. RESPIRATORY SYSTEM: Normal AP diameter. No accessory muscle use. No wheezing, no crackles. ABDOMEN: Soft, bowel sounds present, vague epigastric tender x mild, no distention. discoloration (from insulin shots) b/l lower belly, no s/s infection. CENTRAL NERVOUS SYSTEM: No facial droop. Speech is clear. Obeys simple commands. Moves extremities. EXTREMITIES: No edema, no erythema seen. Results & Data Results & Data ([facility]) Vital Signs (Past 12 Hours) Vital Signs Temp Pulse Pulse Resp BP Pulse Ox O2 Del Method 05/17/22 12:08 36.7 C 85 17 105/72 95 Room Air 05/17/22 06:06 83 05/17/22 07:07 36.6 C 88 18 102/69 95 Room Air 05/17/22 03:57 36.6 C 88 16 104/69 96 Room Air
[2022-05-17] MEDS: FLUTICASONE PROPIONATE NA SPR 16 GM BTL SCH (16:17)
[2022-05-17 17:01] LABS: Appearance Urine Clear (Clear); Bilirubin Urine Negative (Negative); Blood Urine Negative (Negative); Color Urine Yellow; Glucose Urine UA 1+ (Negative); Ketones Urine Negative (Negative); Leukocyte Esterase Urine Negative (Negative); Nitrite Urine Negative (Negative); Protein Urine Negative (Negative); Specific Gravity Urine 1.013 (1.000-1.030); Urobilinogen Urine Negative (Negative); pH Urine 5.5 (4.5-7.5)
[2022-05-17] MEDS: ATORVASTATIN 20 MG TAB PO SCH (19:52)
[2022-05-17] MEDS: CETIRIZINE HCL 10 MG TABLET PO SCH (19:53)
[2022-05-17] MEDS: LANTUS PER UNIT CHARGE SQ SCH (21:03)
[2022-05-17] MEDS: BENZONATATE 100 MG CAPSULE PO PRN (23:55)
[2022-05-18] MEDS: LEVOTHYROXINE SODIUM 50 MCG TABLET PO SCH (06:30)
[2022-05-18] MEDS: IBUPROFEN 600 MG TAB PO SCH ×3 (06:30→18:00)
[2022-05-18] MEDS: BENZONATATE 100 MG CAPSULE PO PRN ×2 (06:30→19:30)
[2022-05-18 07:09] LABS: Calcium 9.4 mg/dl (8.5-10.1); Est GFR (African American) 122.5 ml/min; Est GFR (Non-African American) 105.7 ml/min; Potassium 3.8 mmol/L (3.5-5.1)
[2022-05-18] MEDS: INSULIN ASPART PER UNIT SC SCH ×4 (08:25→20:25)
[2022-05-18] MEDS: traMADol HCL 50 MG TABLET PO PRN ×2 (08:26→20:26)
[2022-05-18] MEDS: COLCHICINE 0.6 MG TAB PO SCH (08:26)
[2022-05-18] MEDS: FLUTICASONE PROPIONATE NA SPR 16 GM BTL SCH (08:27)
[2022-05-18] MEDS: lisinopril 2.5 MG TAB PO SCH (08:28)
[2022-05-18] MEDS: PANTOprazole 40 MG TAB PO SCH (08:29)
[2022-05-18] MEDS ORDERED: LANTUS PER UNIT CHARGE SQ SCH ×2 (09:00→21:00)
--- NOTE | 2022-05-18 09:26 | XRay Report ---
SINGLE VIEW CHEST CLINICAL HISTORY: Dyspnea. Pericardial effusion FINDINGS: An AP, portable, upright chest radiograph is compared to study dated 05/15/2022. Correlation is made with chest CT dated 05/14/2022. The cardiac silhouette is top normal for projection noting at herosclerotic calcification of the thoracic aorta. A trace left pleural effusion persists with left b asilar atelectasis. No pneumothorax is seen. The bony thorax is grossly intact. IMPRESSION: 1. Top normal cardiac silhouette. 2. Trace left pleural effusion with left basilar atelectasis. This is unchanged. ACT 112: Negative or not required by law. Electronically signed by: Ruben Villavicencio M.D. 05/18/2022 9:25 AM
--- NOTE | 2022-05-18 10:07 | Cardiology Progress Note ---
Date of Service May 18, 2022 Assessment & Plan (1) Acute pericardial effusion: (2) Cardiac tamponade: (3) S/P pericardiocentesis: Plan Stat bedside echocardiogram performed. Stable, large circumferential pericardial effusion visualized. There is no evidence of tamponade. Chest x- ray without evidence of pleural effusion. Continue ibuprofen 600 mg 4 times daily currently. Recommend gradual taper over 4 weeks. Continue colchicine 0.6 mg daily for 3 months. Tramadol as needed for recurrent discomfort. Discontinue lisinopril due to ongoing cough. Etiology of pericardial fusion not well defined. TSH within normal limits, serum Lyme screen negative. CARLOS, rheumatoid factor, and HIV screening pending. Recommend patient complete age-appropriate cancer screenings including mammogram, Pap smear, and colonoscopy. Patient's recurrent shoulder discomfort and dyspnea related to reaccumulating pericardial effusion. Discussed further treatment options including repeat pericardiocentesis with drain placement versus transfer to tertiary [facility] for pericardial window. Patient opts for the latter. I will make arrangements for transfer to [facility] in [place]. Admission and Anticipated Discharge Date Admission Date: May 14, 2022 Subjective Called by nursing staff due to left shoulder discomfort. Patient seen exam at the bedside. Notes left shoulder discomfort, 6/10 early a.m. Treated with tramadol. Discomfort currently down to 2/10. No hypotension, lightheadedness, or dizziness. Notes continued cough. Suspect discomfort related to ongoing straining related to cough. Review of Systems Review of Systems: All systems reviewed & are unremarkable except as noted in Subjective Physical Exam Constitutional: well nourished; no acute distress Respiratory: no respiratory distress, no labored breathing and no retractions Cardiovascular: Rate/Rhythm: regular rate and regular rhythm; not tachycardic Heart Sounds: normal S1 and normal S2; no murmur Vessels: radial pulses present; no JVD Extremities: no edema Gastrointestinal (Abdomen): Inspection/Auscultation: normal bowel sounds; abdomen not distended Percussion/Palpation: abdomen soft; abdomen nontender, no guarding and abdomen not rigid Neurologic: CN's II-XI intact bilaterally and moves all extremities; no focal motor deficits Psychiatric: A+Ox3, euthymic affect Results & Data ([facility]) Vital Signs (Past 12 Hours) Vital Signs Temp Pulse Pulse Resp BP Pulse Ox O2 Del Method 05/18/22 07:37 36.6 C 94 H 20 111/77 98 Room Air 05/18/22 06:25 36.7 C 93 H 20 90/62 L 96 Room Air 05/18/22 00:00 88 05/18/22 00:11 36.4 C L 89 18 110/74 97
[2022-05-18 10:15] LABS: Basophils # (auto) 0.05 K/uL (0-0.2); Basophils % (auto) 0.6 %; Eosinophils # (auto) 0.13 K/uL (0-0.50); Eosinophils % (auto) 1.6 %; Hematocrit (blood only) 45.1 % (34.1-44.9); Hemoglobin 14.9 g/dl (12.0-16.0); Immature Granulocytes # (auto) 0.01 K/uL (0.00-0.02); Immature Granulocytes % (auto) 0.1 %; Mean Corpuscular Hemoglobin 28.5 pg (25.0-34.0); Mean Corpuscular Volume 86.4 fL (80.0-100.0); Monocytes # (auto) 0.43 K/uL (0.24-0.82); Monocytes % (auto) 5.2 %; Neutrophils # (auto) 4.81 K/uL (1.4-6.5); Neutrophils % (auto) 58.5 %; Platelet Count 204 K/uL (130-400); RDW Coefficient of Variation 13.2 % (11.5-14.5); RDW Standard Deviation 41.5 fL (36.4-46.3); Red Blood Count 5.22 M/uL (3.93-5.22); White Blood Count 8.23 K/ul (4.8-10.8)
--- NOTE | 2022-05-18 12:06 | Electrocardiogram Report ---
Test Reason : Blood Pressure : / mmHG Vent. Rate : 088 BPM Atrial Rate : 088 BPM P-R Int : 148 ms QRS Dur : 082 ms QT Int : 386 ms P-R-T Axes : 071 -28 064 degrees QTc Int : 467 ms Normal sinus rhythm Low voltage QRS Inferior infarct , age undetermined Abnormal ECG When compared with ECG of 15-MAY-2022 00:04, No significant change was found Confirmed by Danis Su ([id number]) on 05/18/2022 12:05:56 PM Referred By: REFERRED SELF Confirmed By:Danis Su
--- NOTE | 2022-05-18 12:50 | Pharmacy Report ---
Pharmacy Glycemic Short Note 2 - Date of Service May 18, 2022 - Glycemic Short BSG Results (Last 24 hours): 05/17/22 05/17/22 05/18/22 16:20 20:02 06:18 Glucose 106 H POC Glucose 159 H 192 H 05/18/22 05/18/22 07:19 11:05 Glucose POC Glucose 100 H 230 H OUTPATIENT ANTIDIABETIC REGIMEN: * Levemir 60-80 units HS * Novolog SSI HbA1C: 8.8% ASSESSMENT: 05/18: * BSGs fairly well controlled the last 24h, [phone]/dL. Fasting on the lower side this AM at 100mg/dL. Received 70units of basal insulin yesterday and 44 units of Novolog. * Diet ordered and was tolerating the previous 2 days, however she has not eaten yet today. Pericardial fluid re-accumulation and plan for transfer to [facility] per notes. * Received 30 units of Lantus this AM. HS Lantus tonight will depend on whether she eats dinner and her HS BSG. Pharmacy will f/u this evening. * No change to Novolog parameters. 05/15: * 51 YO female admitted to ICU with an acute pericardial effusion s/p pericardiocentesis. She has a history of type 2 diabetes on insulin at home. Pharmacy consulted to assist with glycemic management on admission. * BSGs yesterday evening low - 49-86mg/dL. She received no basal or bolus insulin yesterday in the hospital. BSGs have since rebounded and are 264- 227mg/dL this AM. She is hemodynamically stable and ordered a heart healthy diet. Other stressors stable. * Will initiate basal/bolus insulin this AM (~ mod-severe stress), Lantus 10 units X 1 this AM, 15 units HS, and Novolog ACHS. PLAN FOR INPATIENT GLYCEMIC CONTROL: * Hold outpatient oral diabetes medications * Basal insulin * Lantus 30 units SQ qAM; HS pending diet/BSGs * Bolus insulin * NovoLog per scale ACHS or Q6hrs while NPO * Goal Range: Low 110 mg/dL - High 140 mg/dL * Correction Factor: 20 mg/dL/unit * Nutritional / Prandial insulin per carb ratio of 1 unit per 6 grams CHO consumed
--- NOTE | 2022-05-18 18:09 | Hospitalist Progress Note ---
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 Admitting ESR 55 and CRP 1.0. Admitting CTA chest: No PE, large pericardial effusion. Admitting echo consistent with tamponade and interventricular dependence with very large circumferential pericardial effusion Lyme screen negative. TSH normal. Status post emergent pericardiocentesis by Dr. Cabrera, 05/14/22 --> removed 1 L of straw-colored fluid. f/u 05/14 pericardial studies and culture Cardiology on board, patient on colchicine/ibuprofen/PPI for prophylaxis. HIV and lyme screen negative, CARLOS and RF pending. Patient to get age- appropriate cancer screening as an outpatient [mammogram/Pap/colonoscopy] and CEA. Patient reports improvement in her symptoms after pericardiocentesis with improvement in postprocedure CXR and echo --> echo on 05/17 and 05/18 with reaccumulation of pericardial fluid without cardiac tamponade but symptoms begginning to appear. Continue to monitor in PCU telemetry. Pt transfer process to [facility] initiated, awaiting bed. T2DM Per patient last A1c was 6.7, here 8.8 Lantus/NovoLog per protocol Glycemic pharmacy on board, will need dose up titration. And close follow-up with PCP for continued management. continue lisinopril for renal protection with holding parameters. Hyperlipidemia Continue statin Hypothyroidism Continue levothyroxine DVT prophylaxis SCDs Dispo: PCU telemetry. Full code PCP: Patient resides in [place], has been in area since April 06 while significant other is working Admission and Anticipated Discharge Date Admission Date: May 14, 2022 Subjective Patient seen and examined at bedside as a follow-up of acute pericardial effusion/cardiac tamponade status post emergent pericardiocentesis by Dr. Cabrera 05/14/2022. Patient was lying in bed, on room air, NAD, denies any new acute events overnight. Patient reports eating okay and moving bowels okay. Patient reports improving cough and reports being able to sleep better last night. Patient does have ongoing chronic shoulder pain, voltaren gel was ordered, pt states not getting it to use it. Patient denies chest pain , denies headache or dizziness or sore throat or acute changes in her bowel or bladder habit. Pt does have dry cough and uses zyrtec on regular basis, which is now improving.Flonase has also been added, pt finds more relief. Physical Exam Physical Exam: GENERAL: Alert and oriented x3. NAD, on RA. HEENT: No pallor, no icterus. Pupils equal, round and reactive to light. Oral mucosa moist. engorged throat, no erythema/s/s of infection. NECK: No JVD, no neck masses. HEART: S1 and S2 heard. Regular rate and rhythm. No murmur, no gallop. RESPIRATORY SYSTEM: Normal AP diameter. No accessory muscle use. No wheezing, no crackles. ABDOMEN: Soft, bowel sounds present, vague epigastric tender x mild, no distention. discoloration (from insulin shots) b/l lower belly, no s/s infection. CENTRAL NERVOUS SYSTEM: No facial droop. Speech is clear. Obeys simple commands. Moves extremities. EXTREMITIES: No edema, no erythema seen. Results & Data Results & Data ([facility]) Vital Signs (Past 12 Hours) Vital Signs Temp Pulse Pulse Resp BP Pulse Ox O2 Del Method 05/18/22 15:07 36.5 C 86 19 90/62 L 98 Room Air 05/18/22 14:58 94 H 05/18/22 08:00 87 05/18/22 11:38 36.5 C 95 H 18 144/90 H 98 Room Air 05/18/22 07:37 36.6 C 94 H 20 111/77 98 Room Air 05/18/22 06:25 36.7 C 93 H 20 90/62 L 96 Room Air
[2022-05-18] MEDS: CETIRIZINE HCL 10 MG TABLET PO SCH (20:24)
[2022-05-18] MEDS: ATORVASTATIN 20 MG TAB PO SCH (20:24)
[2022-05-18] MEDS ORDERED: LANTUS PER UNIT CHARGE SC ONE (21:00)
[2022-05-19 09:32] LABS: Anti Nuclear Antibody Screen NEGATIVE (NEGATIVE); Rheumatoid Factor <14 IU/mL (<14)
--- NOTE | 2022-05-19 11:13 | Discharge Summary ---
Date of Service May 18, 2022 Admission HPI Per Admitting Provider This is a 51-year-old female who has a significant past medical history of T2DM, history of TIAs, history of DKA, gastroparesis who presents to ED after complaining of chest pain off and on for 2 weeks. Of significance patient resides in [place]. She is currently in the area with her significant other since April 06 as he has been working locally as a mechanic and welder. Over the last 2 weeks she describes a progressive substernal chest pain that has been worsening over the last 2 weeks. Her pain is worsened with lying flat and feels better if she sits up or leans forward. She does complain of shortness with exertion as well as difficulty taking a deep breath. She denies any recent fever, chills, sweats, lightheadedness, dizziness, syncope, cough, hemoptysis, nausea, vomiting, abdominal pain, change in bowel or urinary habits. She does have off-and-on nausea due to gastroparesis for which she takes Zofran. She also has history of insulin-dependent T2DM. She takes approximately 60 to 80 units of Levemir once daily. She states her last A1c was 6.7. Patient significant other was at bedside. She initially presented to urgent care and was referred over to ED due to concern for possible pericardial effusion. In ED work-up revealed chest x- ray with a large globular cardiac silhouette. CT angiogram revealed a markedly large pericardial effusion and small left pleural effusion. Bedside echo revealed a large circumferential pericardial effusion with tamponade physiology with findings of right ventricular diastolic collapse. 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 Admission Exam Per Admitting Provider Constitutional: WD/WN, vitals as above, anxious and ill appearing, sitting up in bed, answers questions approp Head: Normocephalic, Atraumatic Eyes: PERRL, conjunctivae normal, anicteric sclerae ENMT: external ear and nose normal, oropharynx normal Neck: trachea midline, no thyromegaly normal visual inspection Respiratory: increased respiratory effort, lungs clear to auscultation with decreased BS at bases, no wheeze, rales, rhonchi. Normal insp/exp effort, no accessory muscle use Cardiovascular: RRR, distant heart sounds, no murmur, no edema Vessels: no JVD or carotid bruit Chest: normal inspection of chest Abdomen: normal bowel sounds, soft, nontender, no hepatosplenomegaly Musculoskeletal: no cyanosis or clubbing, extremities motor strength 5/5 Skin: no rashes, warm and dry normal turgor Neurologic: PERRL, EOMI, accommodation nl, no face palsy, no dysarthria CN's II-XI intact bilaterally and moves all extremities Psychiatric: A+Ox3, euthymic affect Lymphatic: no cervical or axillary lymphadenopathy : deferred Principal Diagnosis Recurrent pericardial effusion cardiac tamponade Discharge Exam refer to May 18 progress note. 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 Admitting ESR 55 and CRP 1.0. Admitting CTA chest: No PE, large pericardial effusion. Admitting echo consistent with tamponade and interventricular dependence with very large circumferential pericardial effusion Lyme screen negative. TSH normal. Status post emergent pericardiocentesis by Dr. Cabrera, 05/14/22 --> removed 1 L of straw-colored fluid. f/u 05/14 pericardial studies and culture Cardiology on board, patient on colchicine/ibuprofen/PPI for prophylaxis. HIV and lyme screen negative, CARLOS and RF pending. Patient toget age-appropria te cancer screening as an outpatient[mammogram/Pap/colonoscopy] and CEA. Patient reports improvement in her symptoms after pericardiocentesis with improvement in postprocedure CXR and echo --> echo on 05/17 and 05/18 with reaccumulation of pericardial fluid without cardiac tamponade but symptoms beginning to appear. Continue to monitor in PCU telemetry. Pt transfer process to [facility] initiated, transferred yesterday evening. T2DM Per patient last A1c was 6.7, here 8.8 Lantus/NovoLog per protocol Glycemic pharmacy on board, will need dose up titration. And close follow-up with PCP for continued management. continue lisinopril for renal protection with holding parameters. Hyperlipidemia Continue statin Hypothyroidism Continue levothyroxine DVT prophylaxisSCDs Dispo: Pt transferred to [facility] yesterday evening. Full code PCP: Patient resides in [place], has been in area since April 06 while significant other is working Total Time Total Time Spent Total Time Spent (In Minutes): 35 Discharge Plan Discharge Items Patient Disposition: Transfer Acute Care Hospital Reason For Visit: CARDIAC TAMPONADE Discharge Diagnosis: Recurrent pericardial effusion Activity: As commented below Activity Comment: Per tertiary care center recs. Non-emergency contact: Primary Care Provider Call non-emergency contact if: you have any medication questions, your symptoms worsen and your temperature is above 101 Follow-up/Referrals: Christi Camejo MD [Outside Practitioners] - (Date & Time 05/21/2022 11:00 AM Provider Christi Camejo MD Department [address] [id number] ) Diet: Heart Healthy Addtl Attending Provider Instructions: Home meds will be resumed as it was prior on dc med rec and current inpatient meds are copied/pasted here for the sake of comparison. Date of Service: May 18, 2022 Current Inpatient Medications Atorvastatin Calcium (Atorvastatin 20 Mg Tab) 20 mg PO PM IRIS Stop: 06/13/22 20:59 Last Admin: 05/17/22 19:52 Dose: 20 mg Benzonatate (Benzonatate 100 Mg Capsule) 100 mg PO TID PRN PRN Reason: Cough Stop: 06/14/22 08:18 Last Admin: 05/18/22 06:30 Dose: 100 mg Cetirizine HCl (Cetirizine Hcl 10 Mg Tablet) 10 mg PO HS IRIS Stop: 06/15/22 20:59 Last Admin: 05/17/22 19:53 Dose: 10 mg Colchicine (Colchicine 0.6 Mg Tab) 0.6 mg PO DAILY IRIS Stop: 06/13/22 20:59 Last Admin: 05/18/22 08:26 Dose: 0.6 mg Dextrose (Dextrose 50% 50 Ml Syringe) 25 - 50 ml IV UD PRN; Protocol PRN Reason: Hypoglycemia Protocol Stop: 06/13/22 19:35 Diclofenac Sodium (Diclofenac Sod 1% Gel 100 Gm Tube) 2 gm EXT QID PRN; Protocol PRN Reason: pain Stop: 06/15/22 16:59 Fentanyl Citrate (Fentanyl Citrate 100 Mcg/2 Ml Vial) 25 mcg IV Q2H PRN PRN Reason: Pain Stop: 05/29/22 01:29 Last Admin: 05/15/22 01:40 Dose: 25 mcg Fluticasone Propionate (Fluticasone Propionate Na Spr 16 Gm Btl) 2 sprays NA DAILY IRIS Stop: 06/16/22 15:14 Last Admin: 05/18/22 08:27 Dose: 2 sprays Glucagon (Glucagon For Inj 1 Mg Vial) 1 mg SQ UD PRN; Protocol PRN Reason: Hypoglycemia Protocol Stop: 06/13/22 19:35 Glucose (Glucose 40% Gel 15 Gm Tube) 15 - 30 gm PO UD PRN; Protocol PRN Reason: Hypoglycemia Protocol Stop: 06/13/22 19:35 Glucose (Glucose 10 Tab/Tube) 4 - 8 tab PO UD PRN; Protocol PRN Reason: Hypoglycemia Treatment Stop: 06/13/22 19:35 Ibuprofen (Ibuprofen 600 Mg Tab) 600 mg PO Q6H [facility] Stop: 06/14/22 01:59 Last Admin: 05/18/22 11:58 Dose: 600 mg Insulin Aspart (Insulin Aspart Per Unit) 0 units SC ACHS IRIS Stop: 06/13/22 20:59 Last Admin: 05/18/22 16:51 Dose: 12 units Insulin Glargine (Lantus Per Unit Charge) 30 units SQ QAM [facility]IS Stop: 06/17/22 08:59 Last Admin: 05/18/22 08:30 Dose: 30 units Insulin Glargine (Lantus Per Unit Charge) 35 units SQ HS [facility] Stop: 06/15/22 20:59 Levothyroxine Sodium (Levothyroxine Sodium 50 Mcg Tablet) [facility] Stop: 06/14/22 06:29 Last Admin: 05/18/22 06:30 Dose: 50 mcg Lisinopril (Lisinopril 2.5 Mg Tab) 2.5 mg PO DAILY [facility] Stop: 06/14/22 08:59 Last Admin: 05/18/22 08:28 Dose: 2.5 mg Lorazepam (Lorazepam 0.5 Mg Tab) 0.5 mg PO Q6H PRN PRN Reason: Anxiety Stop: 06/14/22 01:08 Last Admin: 05/15/22 01:33 Dose: 0.5 mg Miscellaneous (Carbohydrates For Hypoglycemia ) 15 - 30 gm PO UD PRN PRN Reason: Hypoglycemia Protocol Stop: 06/13/22 19:35 Last Admin: 05/14/22 20:03 Dose: 30 gm Miscellaneous Information (Pharmacy Glycemic Mgmt Consult) 1 each N/A UD PRN PRN Reason: Consult Stop: 06/13/22 19:35 Pantoprazole Sodium (Pantoprazole 40 Mg Tab) 40 mg PO QAM [facility] Stop: 06/14/22 11:44 Last Admin: 05/18/22 08:29 Dose: 40 mg Tramadol HCl (Tramadol Hcl 50 Mg Tablet) 50 mg PO Q6H PRN PRN Reason: Pain Stop: 06/13/22 19:35 Last Admin: 05/18/22 08:26 Dose: 50 mg Zolpidem Tartrate (Zolpidem Tartrate 5 Mg Tab) 5 mg PO HS PRN PRN Reason: sleep Stop: 06/13/22 19:35 Pending Studies at Discharge: Yes (serology and pericardial fluid studies. ) Stand-Alone Forms: [facility] Skilled Items Patient informed of condition?: Yes DNR: No Discharge Level of Care: Other Communicable Disease: No Discharge Prognosis: Deteriorating Lines: Peripheral IV Urinary Catheter: No Medications and DC Order Prescriptions: Continued atorvastatin [Lipitor] 20 mg Tablet 20 mg PO PM cetirizine [Zyrtec] 10 mg Tablet 10 mg PO DAILY ondansetron HCl 4 mg Tablet 4 mg PO Q6H PRN (Reason: NAUSEA/VOMITING) tramadol 50 mg tablet 50 mg PO Q6H PRN (Reason: Pain) insulin aspart U-100 [Novolog U-100 Insulin aspart] 100 unit/mL Solution 1 sliding scale dose SUBCUT USEASDIRECTD PRN (Reason: DEPENDS ON BSG.) Rx Instructions: PER SPOUSE "HAS BEEN TAKING 3 UNITS DAILY LATELY". levothyroxine [Euthyrox] 50 mcg tablet 50 mcg PO DAILY zolpidem 10 mg tablet 10 mg PO HS lisinopril 2.5 mg tablet 2.5 mg PO DAILY Levemir U-100 Insulin 100 unit/mL Solution 60 - 80 unit SUBCUT HS Rx Instructions: PER SPOUSE "NEVER ABOVE 80 UNITS". Discharge Orders: Discharge Order (Routine); Ordered 05/19/22 Ordered By: Manjula Mckenzie Admission Data Admit Date/Time: 05/14/22 18:09 Attending Provider: Manjula Mckenzie Admit Provider: Leonardo Sung Primary Care Provider: PCP,NO Other Providers: Leonardo Sung ; Tino Patten ; Shawn Toth Other Interventions: Discharge Summary Assessment (RN) Last Done: 05/18/22 22:00
[2022-05-20 14:56] LABS: Fluid Appearance CLEAR; Fluid Basophil % DNR %; Fluid Color YELLOW; Fluid Comment DNR; Fluid Eosinophil % DNR %; Fluid Lymphocytes % DNR %; Fluid Mesothelial % DNR %; Fluid Monocyte/Macrophage % DNR %; Fluid Total Nucleated Cell Ct 100 cells/uL; Fluid Type PERICARDIAL FLUID; Pericardial Fld,Total Protein 5.3 g/dL; Pericardial Fluid, Albumin 4.7 g/dL; Pericardial Fluid, Glucose 179 mg/dL; Pericardial Fluid, LDH 174 U/L
== END 2022-05-18 20:40 | disposition short-term general hospital (02) | DRG 316 ==
LOC: ED 13:47 → SUATTDRO 18:09 → 1E 18:09 → 2E 05-15 19:29